=== PATIENT | male | born 1945 | race Caucasian/White ===

== ENCOUNTER → 2017-12-30 | Outpatient (CLI) | payer MEDICARE ==
[2015-06-28 11:29] VITALS: BP 129/79
[~2017-12-30] MED LIST: ACET325T16 PO; APIX5TAB PO; ASPI-612 PO; DILT240C32 PO; FLUT1DIS3 IH; LEVO500T59 PO; LOSA100T7 PO; TAMS0.4C97 PO; TIOT18CA IH; XOPENEX HFA15 GM IH
--- NOTE | 2017-12-30 10:50 | CARD ---
MR#: [id number] Date of Study: 12/30/2017 Ordering Physician: MICHEAL REED, Referring Physician: MICHEAL REED, Tech: Jessica Villalobos [facility] APPROVED REPORT EXAM: Two-dimensional and M-mode echocardiogram with Doppler and color Doppler. Other Information Quality : Technically LimitedHR: 70bpm Rhythm : NSRTechnically limited study due to lung disease. INDICATION Atrial Fibrillation LEFT VENTRICLE The left ventricle is normal size. There is borderline concentric left ventricular hypertrophy. The l eft ventricular systolic function is normal and the ejection fraction is within normal range. The Eje ction Fraction is 55-60%. There is normal LV segmental wall motion. Transmitral Doppler flow pattern is Grade II-pseudonormal filling dynamics. RIGHT VENTRICLE The right ventricle is mildly dilated. There is normal right ventricular wall thickness. The right ve ntricular systolic function is normal. ATRIA The left atrium size is normal. The right atrium size is normal. The interatrial septum is intact wit h no evidence for an atrial septal defect or patent foramen ovale as noted on 2-D or Doppler imaging. AORTIC VALVE The aortic valve is trileaflet. The aortic valve is normal in structure and function. Doppler and Col or Flow revealed no significant aortic regurgitation. There is no significant aortic valvular stenosi s. MITRAL VALVE The mitral valve is normal in structure and function. There is no evidence of mitral valve prolapse. There is no mitral valve stenosis. Doppler and Color Flow revealed no mitral valve regurgitation note d. TRICUSPID VALVE The tricuspid valve is normal in structure and function. Doppler and Color Flow revealed trace tricus pid regurgitation. There is no tricuspid valve prolapse or vegetation. There is no tricuspid valve st enosis. PULMONIC VALVE Pulmonic valve not well visualized. GREAT VESSELS The aortic root is normal in size. The IVC is normal in size and collapses >50% with inspiration. PERICARDIAL EFFUSION There is no evidence of significant pericardial effusion. Critical Notification Critical Value: No <Conclusion> The left ventricular systolic function is normal and the ejection fraction is within normal range. Th e Ejection Fraction is 55-60%. There is normal LV segmental wall motion. The right ventricle is mildly dilated. Signed by : Micheal Reed, Electronically Approved : 12/30/2017 10:49:50
== END | disposition home or self-care (01) ==
LOC: ECHO 07:53
PROVIDERS: ATTEND Internal Medicine Cardiovascular Disease
DX: I48.0 Paroxysmal atrial fibrillation (principal)
CPT/HCPCS: 93306

== ENCOUNTER → 2020-01-25 | Outpatient (CLI) | payer MEDICARE ==
[2015-06-28 11:29] VITALS: BP 129/79
[~2020-01-25] MED LIST changes: +ACET-2061 PO; -ACET325T16 PO; -ASPI-612 PO; +ASPI-886 PO; +LOSA100T14 PO; -LOSA100T7 PO
--- NOTE | 2020-01-25 12:06 | CARD ---
MR#: [id number] Date of Study: 01/25/2020 Ordering Physician: MICHEAL MITTAL, Referring Physician: MICHEAL MITTAL, Tech: Ntaalie Guzman APPROVED REPORT EXAM: Two-dimensional and M-mode echocardiogram with Doppler and color Doppler. Other Information Quality : FairHR: 71bpm Technically limited study due to COPD INDICATION COPD Atrial Fibrillation RISK FACTORS Hypertension 2D DIMENSIONS RVDd3.5 (2.9-3.5cm)Left Atrium(2D)2.5 (1.6-4.0cm) IVSd1.0 (0.7-1.1cm)Aortic Root(2D)3.4 (2.0-3.7cm) LVDd4.3 (3.9-5.9cm)LVOT Diameter2.0 (1.8-2.4cm) PWd1.0 (0.7-1.1cm)LVDs2.7 (2.5-4.0cm) FS (%) 38.2 %SV56.9 ml LVEF(%)68.8 (>50%) Aortic Valve AoV Peak Sam.148.7cm/sAoV VTI27.1cm AO Peak GR.8.8mmHgLVOT Peak Sam.92.6cm/s LVOT VTI 22.68cmAO Mean GR.4mmHg TERRI (VMAX)1.76og0JST (VTI)2.73cm2 Mitral Valve MV E Lbtqjmja56.1cm/sMV DECEL MQJN055ii MV A Injpfwoh92.1cm/sMV E Mean Gr.1mmHg MV BGJ11ylB/A Ratio0.7 MVA (PHT)2.90cm2 TDI E/Lateral E'9.0E/Medial E'8.6 Pulmonary Valve PV Peak Ptugsdsp54.7cm/sPV Peak Grad.3mmHg Tricuspid Valve TR P. Osycqmbg400ru/sRAP POVRWGTP2wpSn TR Peak Gr.69agFvJXOP34hvLh Pulmonary Vein S1 Daburisy25.4cm/sD2 Tjejxtwa91.1cm/s PVa vpeetsyy888xjho LEFT VENTRICLE The left ventricle is normal size. There is normal left ventricular wall thickness. The left ventricu lar systolic function is normal and the ejection fraction is within normal range. The Ejection Fracti on is 55-60%. There is grossly normal LV segmental wall motion. Technically limited images Transmitra l Doppler flow pattern is Grade I-abnormal relaxation pattern. RIGHT VENTRICLE The right ventricle is normal size. There is normal right ventricular wall thickness. The right ventr icular systolic function is normal. ATRIA The left atrium size is normal. The right atrium size is normal. The interatrial septum is intact wit h no evidence for an atrial septal defect or patent foramen ovale as noted on 2-D or Doppler imaging. AORTIC VALVE The aortic valve is not well visualized. Doppler and Color Flow revealed no significant aortic regurg itation. There is no significant aortic valvular stenosis. Calculated aortic valve area is 2.47 cm2 w ith maximum pressure gradient of 10 mmHg and mean pressure gradient of 5 mmHg. MITRAL VALVE The mitral valve is normal in structure and function. There is no evidence of mitral valve prolapse. There is no mitral valve stenosis. Doppler and Color-flow revealed trace mitral regurgitation. TRICUSPID VALVE The tricuspid valve is not well visualized. Doppler and Color Flow revealed trace tricuspid regurgita tion with an estimated PAP of 37 mmHg. There is no tricuspid valve stenosis. PULMONIC VALVE The pulmonic valve is not well visualized. Doppler and Color Flow revealed no pulmonic valvular regur gitation. GREAT VESSELS The aortic root is normal in size. The ascending aorta is normal in size. The IVC is normal in size a nd collapses >50% with inspiration. PERICARDIAL EFFUSION There is no evidence of significant pericardial effusion. Critical Notification Critical Value: No <Conclusion> The left ventricular systolic function is normal and the ejection fraction is within normal range. Th e Ejection Fraction is 55-60%. There is grossly normal LV segmental wall motion. Technically limited images Doppler and Color Flow revealed trace tricuspid regurgitation with an estimated PAP of 37 mmHg. Signed by : Micheal Mittal, Electronically Approved : 01/25/2020 12:06:00
== END ==
LOC: ECHO 08:49
PROVIDERS: ATTEND Internal Medicine Cardiovascular Disease
DX: I48.0 Paroxysmal atrial fibrillation (principal)
CPT/HCPCS: 93306

== ENCOUNTER → 2020-11-27 | Outpatient (CLI) | payer MEDICARE ==
[2015-06-28 11:29] VITALS: BP 129/79
--- NOTE | 2020-11-27 11:41 | KCIC ---
EXAM: Bilateral feet, 3 views. HISTORY: Pain. COMPARISON: None. FINDINGS: 3 views of both feet are obtained. There is right first metatarsal phalangeal joint space n arrowing with degenerative subchondral sclerosis, subchondral cyst formation and marginal spurring. T here is a suspected healed fracture of the right fifth proximal phalanx. There are small bilateral pl tanner spurs. IMPRESSION: 1. 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 2. Small bilateral plantar spurs. Electronically signed by: Aaliyah Flores MD (11/27/2020 11:38 AM) [id number]
--- NOTE | 2020-11-27 12:41 | KCIC ---
EXAM: XR HAND 3 VIEWS 11/27/2020 10:40 AM CLINICAL INDICATION: Pain in multiple joints COMPARISON: None TECHNIQUE: PA, oblique, and lateral views of the right and left hand FINDINGS: Left hand: The bones are diffusely demineralized. There is no acute fracture. There is severe joint s pace narrowing at the first CMC joint with small osteophytes. Moderate to severe joint space narrowin g with small osteophytes and mild degenerative subluxation of the second DIP joint, and mild at the t hird DIP joint. Moderate joint space narrowing of the first and second MCP joints. There are no erosi ons. Soft tissue is normal. Right hand: The bones are diffusely demineralized. There is no acute fracture. There are small osteop hytes at the first CMC joint. Moderate to severe joint space narrowing with small osteophytes and sub chondral cysts at the first interphalangeal joint and second and third DIP joints. Moderate joint spa ce narrowing of the thumb MCP joint. There is severe joint space narrowing and small subchondral cyst s at the second and third MCP joints with volar subluxation. There is radiocarpal joint space narrowi ng with small osteophytes. No definite erosions. Soft tissue is normal. IMPRESSION: 1. Multifocal osteoarthrosis, greatest in the second and third MCP and DIP joints, and first CMC join ts bilaterally. 2. Osteopenia. Electronically signed by: Tanika Jimenez MD (11/27/2020 12:39 PM) [id number]
== END ==
LOC: KCIC 10:32
PROVIDERS: ATTEND Internal Medicine Rheumatology
DX: M19.071 Primary osteoarthritis, right ankle and foot (principal); M19.042 Primary osteoarthritis, left hand; M19.041 Primary osteoarthritis, right hand; M85.849 Other specified disorders of bone density and structure, unspecified hand
CPT/HCPCS: 73130-50; 73630-50

== ENCOUNTER 2021-01-07 12:49 | Inpatient (IN) | payer MEDICARE ==
[~2021-01-07] VITALS: Ht 170.2 cm; Wt 70.5 kg
[2021-01-07] MEDS ORDERED: IV NORMAL SALINE 1000ML BAG 1,000 ML IV SCH (13:30)
[2021-01-07 13:56] LABS: BASO % 0 % (0-3); EOS % 0 % (0-3); HEMATOCRIT 37.8 % (39.0-53.0); LYMPH # 0.4 x10^3/uL (1.0-4.8); LYMPH % 3 % (24-48); MEAN CORPUSCULAR HEMOGLOBIN 30 pg (25-35); MEAN CORPUSCULAR HGB CONC 34 g/dL (31-37); MEAN CORPUSCULAR VOLUME 87 fL (79-100); MONO # 1.3 x10^3/uL (0.0-1.1); MONO % 11 % (0-9); NEUT # 9.9 x10^3/uL (1.8-7.7); NEUT % 85 % (31-73); PLATELET COUNT 261 x10^3/uL (140-400); RED BLOOD COUNT 4.35 x10^6/uL (4.30-5.70); RED CELL DISTRIBUTION WIDTH 14.8 % (11.5-14.5); WHITE BLOOD COUNT 11.7 x10^3/uL (4.0-11.0)
[2021-01-07] MEDS ORDERED: DEXAMETHASONE SOD PHOS 4 MG/ML VIAL IVP ONE (14:00)
[2021-01-07] MEDS ORDERED: IV NORMAL SALINE 1000ML BAG 1,000 ML IV ONE (14:00)
[2021-01-07] MEDS ORDERED: IPRATRPIUM/ALBUTEROL 0.5/2.5MG 3 ML NEBU. NEB ONE (14:00)
[2021-01-07 14:06] LABS: CALCIUM 8.2 mg/dL (8.5-10.1); CREATININE 0.9 mg/dL (0.7-1.3); GFR 82.3; POTASSIUM 3.1 mmol/L (3.5-5.1)
[2021-01-07 14:12] LABS: ALBUMIN 2.7 g/dL (3.4-5.0); ALBUMIN/GLOBULIN RATIO 0.6 (1.0-1.7); TOTAL BILIRUBIN 0.6 mg/dL (0.2-1.0)
--- NOTE | 2021-01-07 14:24 | EKG ---
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
--- NOTE | 2021-01-07 14:25 | RAD ---
EXAM: Chest, single view. HISTORY: Shortness of breath. COMPARISON: 01/25/2016 FINDINGS: A frontal view of the chest is obtained. There is partially consolidated left lower lobe in filtrate with small pleural effusion. The superimposed on diffuse interstitial infiltrate and suspect ed emphysema. There is a small nodular opacity overlying the left upper lobe which may be due to afor ementioned infiltrate. The heart is normal in size. There is no pneumothorax. IMPRESSION: 1. Partial consolidated left lower lobe pneumonia with small pleural effusion. 2. Diffuse interstitial infiltrate superimposed on emphysema. 3. Small nodular opacity overlying the left upper lobe possibly due to aforementioned infiltrate. Brigida rt-term radiographic or CT follow-up to exclude a pulmonary nodule in this location is recommended. Electronically signed by: Aaliyah Flores MD (01/07/2021 2:23 PM) [id number]
[2021-01-07 14:27] LABS: PROTHROMBIN TIME PATIENT 16.5 SEC (11.7-14.0)
--- NOTE | 2021-01-07 14:33 | PHYS DOC ---
Past Medical History Past Medical History: COPD Additional Past Medical Histor: BPH Past Surgical History: No Surgical History, Appendectomy, Cholecystectomy Smoking Status: Never Smoker Alcohol Use: None Drug Use: None General Adult EDM: Chief Complaint: SHORTNESS OF BREATH HPI: HPI: Patient is a 75 year old male who presents with productive cough and increased and shortness of breath over the last week. Initial symptoms started 2 weeks ago.Patient reports his O2 saturation at home was 84% which is what prompted him to go to urgent care. Patient is not on home oxygen. Patient was seen in urgent care prior to arrival and given one breathing treatment. Patient also had a rapid Covid test done at urgent care which was negative. Patient denies pain, fever, nausea/vomiting/diarrhea. Patient has a history of COPD, A. fib, BPH. Review of Systems: Review of Systems: ROS At least 10 ROS systems have been reviewed and are negative except as documented in the HPI. General: Negative except as outlined in HPI above. Skin: Negative except as outlined in HPI above. HEENT: Negative except as outlined in HPI above. Neck: Negative except as outlined in HPI above. Respiratory: Negative except as outlined in HPI above.. Cardiovascular: Negative except as outlined in HPI above. Abdomen: Negative except as outlined in HPI above. : Negative except as outlined in HPI above. Back/MSK: Negative except as outlined in HPI above. Neuro: Negative except as outlined in HPI above. Psych: Negative except as outlined in HPI above. Heart Score: C/O Chest Pain: No Risk Factors: Risk Factors: DM, Current or recent (<one month) smoker, HTN, HLP, family history of CAD, obesity. Risk Scores: Score 0 - 3: 2.5% MACE over next 6 weeks - Discharge Home Score 4 - 6: 20.3% MACE over next 6 weeks - Admit for Clinical Observation Score 7 - 10: 72.7% MACE over next 6 weeks - Early Invasive Strategies Current Medications: Current Medications Medications (Trade) Dose Ordered Sig/Pari Start Time Stop Time Status Last Admin Dose Admin Albuterol/ Ipratropium (Duoneb) 3 ml 1X ONCE 01/07/21 14:00 01/07/21 14:01 DC 01/07/21 14:20 3 ML Dexamethasone Sodium Phosphate (Decadron) 10 mg 1X ONCE 01/07/21 14:00 01/07/21 14:01 DC 01/07/21 14:24 10 MG Sodium Chloride 1,000 ml @ 0 mls/hr 1X ONCE 01/07/21 14:00 01/07/21 14:01 DC Allergies: Allergies: Allergies Coded Allergies Type Severity Reaction Last Updated Verified No Known Drug Allergies 06/07/13 No Physical Exam: PE: Constitutional: Well developed, well nourished, no acute distress, non-toxic appearance. [] HENT: Normocephalic, atraumatic, bilateral external ears normal, oropharynx moist, no oral exudates, nose normal. [] Eyes: PERRLA, EOMI, conjunctiva normal, no discharge. [] Neck: Normal range of motion, no tenderness, supple, no stridor. [] Cardiovascular:Heart rate tachycardic Lungs & Thorax: Bilateral breath sounds clear to auscultation [] Abdomen: Bowel sounds normal, soft, no tenderness, no masses, no pulsatile masses. [] Skin: Warm, dry, no erythema, no rash. [] Back: No tenderness, no CVA tenderness. [] Extremities: No tenderness, no cyanosis, no clubbing, ROM intact, no edema. [] Neurologic: Alert and oriented X 3, normal motor function, normal sensory functi on, no focal deficits noted. [] Psychologic: Affect normal, judgement normal, mood normal. [] Current Patient Data: Labs: Laboratory Tests Test 01/07/21 13:25 White Blood Count 11.7 x10^3/uL (4.0-11.0) H Red Blood Count 4.35 x10^6/uL (4.30-5.70) Hemoglobin 13.0 g/dL (13.0-17.5) Hematocrit 37.8 % (39.0-53.0) L Mean Corpuscular Volume 87 fL (79-100) Mean Corpuscular Hemoglobin 30 pg (25-35) Mean Corpuscular Hemoglobin Concent 34 g/dL (31-37) Red Cell Distribution Width 14.8 % (11.5-14.5) H Platelet Count 261 x10^3/uL (140-400) Neutrophils (%) (Auto) 85 % (31-73) H Lymphocytes (%) (Auto) 3 % (24-48) L Monocytes (%) (Auto) 11 % (0-9) H Eosinophils (%) (Auto) 0 % (0-3) Basophils (%) (Auto) 0 % (0-3) Neutrophils # (Auto) 9.9 x10^3/uL (1.8-7.7) H Lymphocytes # (Auto) 0.4 x10^3/uL (1.0-4.8) L Monocytes # (Auto) 1.3 x10^3/uL (0.0-1.1) H Eosinophils # (Auto) 0.0 x10^3/uL (0.0-0.7) Basophils # (Auto) 0.0 x10^3/uL (0.0-0.2) Platelet Estimate Pending Sodium Level 136 mmol/L (136-145) Potassium Level 3.1 mmol/L (3.5-5.1) L Chloride Level 95 mmol/L (98-107) L Carbon Dioxide Level 33 mmol/L (21-32) H Anion Gap 8 (6-14) Blood Urea Nitrogen 8 mg/dL (8-26) Creatinine 0.9 mg/dL (0.7-1.3) Estimated GFR (Cockcroft-Gault) 82.3 BUN/Creatinine Ratio 9 (6-20) Glucose Level 129 mg/dL (70-99) H Lactic Acid Level 1.2 mmol/L (0.4-2.0) Calcium Level 8.2 mg/dL (8.5-10.1) L Total Bilirubin 0.6 mg/dL (0.2-1.0) Aspartate Amino Transferase (AST) 19 U/L (15-37) Alanine Aminotransferase (ALT) 26 U/L (16-63) Alkaline Phosphatase 71 U/L (46-116) Creatine Kinase 77 U/L (39-308) Creatine Kinase MB (Mass) 0.5 ng/mL (0.0-3.6) Creatine Kinase MB Relative Index 0.6 % (0-4) Troponin I High Sensitivity 12 ng/L (4-75) BB-Rnw-H-Type Natriuretic Peptide 410 pg/mL (0-449) Total Protein 7.0 g/dL (6.4-8.2) Albumin 2.7 g/dL (3.4-5.0) L Albumin/Globulin Ratio 0.6 (1.0-1.7) L Laboratory Tests 01/07/21 13:25 Laboratory Tests 01/07/21 13:25 Vital Signs: Vital Signs Date Time Temp Pulse Resp B/P (MAP) Pulse Ox O2 Delivery O2 Flow Rate FiO2 01/07/21 14:20 94 Nasal Cannula 3.0 01/07/21 13:04 98.2 114 36 141/108 (119) 98.2 EKG: EKG: [] Radiology/Procedures: Radiology/Procedures: []EXAM: Chest, single view. HISTORY: Shortness of breath. COMPARISON: 01/25/2016 FINDINGS: A frontal view of the chest is obtained. There is partially consolidated left lower lobe infiltrate with small pleural effusion. The superimposed on diffuse interstitial infiltrate and suspected emphysema. There is a small nodular opacity overlying the left upper lobe which may be due to af orementioned infiltrate. The heart is normal in size. There is no pneumothorax. IMPRESSION: 1. Partial consolidated left lower lobe pneumonia with small pleural effusion. 2. Diffuse interstitial infiltrate superimposed on emphysema. 3. Small nodular opacity overlying the left upper lobe possibly due to aforementioned infiltrate. Short-term radiographic or CT follow-up to exclude a pulmonary nodule in this location is recommended. Electronically signed by: Aaliyah Flores MD (01/07/2021 2:23 PM) [id number] CT angiography chest with contrast PQRS statement: CT scans at this facility use dose reduction including either automated exposure control, iterative reconstructions, and /or weight based radiation dosing via mA and kV modification when appropriate to reduce radiation dose to as low as reasonably achievable. Contrast: 90 mL Omnipaque 350 intravenous contrast. 3-D MIP reconstructions of the arteries were acquired. HISTORY: Shortness of breath. COMPARISON: CT chest November 13, 2015. FINDINGS: Mild ectasia ascending thoracic aorta diameter 3.[address] aque aortic root. Coronary calcified plaque. Heart size normal. Esophagus unremarkable. No pulmonary emboli. There is mild mediastinal and hilar adenopathy largest lymph nodes at the hilum measuring 1.2 cm. This adenopathy is new from prior imaging. Miniscule subcentimeter volume of pleural fluid along the medial lung bases. Trachea and bronchi are unremarkable. Extensive centrilobular nodules and nodular opacities bilaterally and there is basilar left lower lobe consolidated opacity along the diaphragm. This is new from prior imaging. Bones are unremarkable. IMPRESSION: 1. No pulmonary artery emboli. 2. Extensive bilateral centrilobular nodules as well as nodular opacities, as well as consolidation at the basilar left lower lobe along the diaphragm. This is typical of an endobronchial infectious/inflammatory process. This may be multilobar endobronchial pneumonia. Given the presence of mild mediastinal and hilar adenopathy, sarcoidosis would also be a consideration. This would be an atypical presentation of metastatic disease. Follow-up CT imaging in 3 months is advised to document this improves over time. If this does not improve over time or if imaging features on clinical features worsen further assessment with PET scan imaging may be of benefit. Electronically signed by: Hunter Monzon MD (01/07/2021 3:53 PM) [facility] Course & Med Decision Making: Course & Med Decision Making Pertinent Labs and Imaging studies reviewed. (See chart for details) [] 75-year-old male presents with shortness of breath and productive cough for 2 weeks. Symptoms have increased over the last week.Chest x-ray showed partial consolidated left lower lobe pneumonia with small pleural effusion.Small nodular opacity overlying the left upper lobe possibly due to aforementioned infiltrate. D-dimer was elevated at 1.05. CTA of chest was ordered to rule out PE. CTA showed scarring, which is most likely from sarcoidosis. No indication metastatic disease, PEs. Patient was tachypneic and hypoxic on arrival. Patient was 87-88% on room air. Placed on 4 L and nasal cannula, patient 92 to 94%. ABGs ordered. Patient currently takes Eliquis and a daily aspirin due to history of A. fib. PT, 16.5, INR 1.3. Potassium was 3.1. Patient given 40 mEq of potassium. All other labs are unremarkable. Discussed all results with patient. Advised patient he would be admitted to the hospital for further evaluation. Spoke with Dr. Rangel who will accept patient with pneumonia, hypoxia, PUI. Carlin Disclaimer: Carlin Disclaimer: This electronic medical record was generated, in whole or in part, using a voice recognition dictation system. Departure Departure Impression: Primary Impression: Pneumonia Qualified Codes: J18.9 - Pneumonia, unspecified organism Additional Impressions: Hypoxia Person under investigation for COVID-19 Disposition: ADMITTED INPATIENT Admitting Physician: FELISA Condition: STABLE Referrals: STACIA TOLBERT MD (PCP) WILNER SCHROEDER [employer] Jan 07, 2021 14:33
[2021-01-07 14:36] LABS: D-DIMER 1.05 ug/mlFEU (0.00-0.50)
[2021-01-07 14:37] LABS: BASE EXCESS ABG 7 mmol/L (-3-3); HCO3 ABG 30 mmol/L (21-28); PCO2 ABG 39 mmHg (35-46); PO2 ABG 67 mmHg (65-108); SAT O2 ABG 94 % (92-99)
[2021-01-07 14:38] LABS: FIO2 ABG 32
[2021-01-07 14:49] LABS: % BANDS 8 % (0-9); % LYMPHS 2 % (24-48); % MONOS 11 % (0-10); % PROS 2 % (0-0); % SEGS 77 % (35-66)
[2021-01-07 14:51] LABS: PLT ESTIMATE ADEQUATE (ADEQUATE)
[2021-01-07] MEDS ORDERED: IOHEXOL 350 MG/ML 100 ML VIAL. IV ONE (15:15)
[2021-01-07] MEDS ORDERED: CONTRAST GIVEN. MC PRN (15:15)
[2021-01-07] MEDS ORDERED: cefTRIAXone IV Push 1 GM VIAL. IVP ONE (15:45)
[2021-01-07] MEDS ORDERED: AZITHRMYCN 500MG IVPB FOR OMNI 250 ML IV ONE (15:45)
--- NOTE | 2021-01-07 15:55 | RAD ---
CT angiography chest with contrast PQRS statement: CT scans at this facility use dose reduction including either automated exposure cont rol, iterative reconstructions, and /or weight based radiation dosing via mA and kV modification when appropriate to reduce radiation dose to as low as reasonably achievable. Contrast: 90 mL Omnipaque 350 intravenous contrast. 3-D MIP reconstructions of the arteries were acqu ired. HISTORY: Shortness of breath. COMPARISON: CT chest November 13, 2015. FINDINGS: Mild ectasia ascending thoracic aorta diameter 3.7 cm. Calcified plaque aortic root. Gray ry calcified plaque. Heart size normal. Esophagus unremarkable. No pulmonary emboli. There is mild me diastinal and hilar adenopathy largest lymph nodes at the hilum measuring 1.2 cm. This adenopathy is new from prior imaging. Miniscule subcentimeter volume of pleural fluid along the medial lung bases. Trachea and bronchi are unremarkable. Extensive centrilobular nodules and nodular opacities bilateral ly and there is basilar left lower lobe consolidated opacity along the diaphragm. This is new from pr ior imaging. Bones are unremarkable. IMPRESSION: 1. No pulmonary artery emboli. 2. Extensive bilateral centrilobular nodules as well as nodular opacities, as well as consolidation a t the basilar left lower lobe along the diaphragm. This is typical of an endobronchial infectious/inf lammatory process. This may be multilobar endobronchial pneumonia. Given the presence of mild mediast inal and hilar adenopathy, sarcoidosis would also be a consideration. This would be an atypical prese ntation of metastatic disease. Follow-up CT imaging in 3 months is advised to document this improves over time. If this does not improve over time or if imaging features on clinical features worsen furt her assessment with PET scan imaging may be of benefit. Electronically signed by: Hunter Monzon MD (01/07/2021 3:53 PM) [facility]
[2021-01-07] MEDS ORDERED: oxyCODONE IR 5 MG TABLET PO PRN (16:45)
[2021-01-07] MEDS ORDERED: ELECTROLYTE (NON-ICU) PROTOCOL. MC PRN (16:45)
[2021-01-07] MEDS ORDERED: oxyCODONE/APAP 5/325 1 TAB TABLET PO PRN ×2 (16:45)
[2021-01-07] MEDS ORDERED: CALCIUM CARBONATE 500 MG TAB.CHEW PO PRN (16:45)
[2021-01-07] MEDS ORDERED: ZOLPIDEM 5 MG TABLET. PO PRN (16:45)
[2021-01-07] MEDS ORDERED: ACETAMINOPHEN 325 MG TABLET. PO PRN (16:45)
[2021-01-07] MEDS ORDERED: ONDANSETRON PF 4 MG/2 ML VIAL. IVP PRN (16:45)
[2021-01-07] MEDS ORDERED: NON FORMULARY ITEM (Levalbuterol Tartrate (Xopenex Hfa) 2 PUFF) IH SCH (17:00)
[2021-01-07] MEDS ORDERED: POTASSIUM CHLORIDE 20 MEQ TABLET.ER. PO ONE (17:00)
--- NOTE | 2021-01-07 17:04 | PDOC1 ---
History and Physical Date of Service: DOS: DATE: 01/07/21 TIME: 16:52 Chief Complaint: Problems: (1) Acute and chronic respiratory failure with hypoxia Chief Complain: SOB History of Present Illness: HPI: This patient is 75-year-old male presented the emergency room today due to cough productive of yellow mucus and worsening shortness of breath for about 1 week. He says his symptoms have been progressing for about 2 weeks now. He went to urgent care this morning was given a breathing treatment and had a rapid Covid done which was negative. The reason he went to urgent care this morning is that his O2 sat was in the mid to low 80s. Patient describes an interesting history of pulmonary problems. He has never been a smoker. However [place] spent a lot of time around farm animals and grain dust. He then went on to work in the [employer] for over 30 years and was around a lot of secondhand smoke. Says he was initially seen by a environmental education specialist in the early who said he did not have COPD but he was going to treat him as if he did? He has been on numerous inhalers. Currently on Trelegy at home. He has been treated for pneumonia a few times since then. Denies ever having any sort of lung biopsy. Imaging today in the emergency room showing left lower lobe consolidation consistent with a pneumonia. He also does have some centrilobular adenopathy. When I evaluated the patient he was resting in bed. On 3 L nasal cannula. Agreeable to admission. Reports that he received both Covid vaccines Past Medical/Surgical History: PMH/PSH: Some sort of lung disorder patient is not sure about, atrial fibrillation Allergies: Allergies: Coded Allergies: No Known Drug Allergies (Unverified , 06/07/13) Family History: Family History: Reviewed with patient denies knowing any family history Social History: Social History: Denies alcohol tobacco drug use Current Medications: Current Medications Current Medications Sodium Chloride 1,000 ml @ 1,000 mls/hr Q1H IV Last administered on 01/07/21at 14:20; Start 01/07/21 at 13:30; Stop 01/07/21 at 14:29; Status DC Dexamethasone Sodium Phosphate (Decadron) 10 mg 1X ONCE IVP Last administered on 01/07/21at 14:24; Start 01/07/21 at 14:00; Stop 01/07/21 at 14:01; Status DC Albuterol/ Ipratropium (Duoneb) 3 ml 1X ONCE NEB Last administered on 01/07/21at 14:20; Start 01/07/21 at 14:00; Stop 01/07/21 at 14:01; Status DC Sodium Chloride 1,000 ml @ 0 mls/hr 1X ONCE IV ; Start 01/07/21 at 14:00; Stop 01/07/21 at 14:01; Status DC Iohexol (Omnipaque 350 Mg/ml) 90 ml 1X ONCE IV Last administered on 01/07/21at 15:35; Start 01/07/21 at 15:15; Stop 01/07/21 at 15:16; Status DC Info (CONTRAST GIVEN -- Rx MONITORING) 1 each PRN DAILY PRN MC SEE COMMENTS; Start 01/07/21 at 15:15; Stop 01/09/21 at 15:14 Ceftriaxone Sodium (Rocephin) 1 gm 1X ONCE IVP ; Start 01/07/21 at 15:45; Stop 01/07/21 at 15:46; Status DC Azithromycin 250 ml @ 250 mls/hr 1X ONCE IV ; Start 01/07/21 at 15:45; Stop 01/07/21 at 16:44; Status DC Ondansetron HCl (Zofran) 4 mg PRN Q6HRS PRN IVP NAUSEA/VOMITING; Start 01/07/21 at 16:45; Status UNV Calcium Carbonate/ Glycine (Tums) 500 mg PRN Q3HRS PRN PO UPSET STOMACH; Start 01/07/21 at 16:45; Status UNV Zolpidem Tartrate (Ambien) 5 mg PRN QHS PRN PO INSOMNIA, MAY REPEAT IN 1HR; Start 01/07/21 at 16:45; Status UNV Info (Non-Icu Electrolyte Protocol) 1 ea PRN DAILY PRN MC SEE COMMENTS; Start 01/07/21 at 16:45; Status UNV Oxycodone HCl (Roxicodone) 5 mg PRN Q3HRS PRN PO BREAKTHROUGH PAIN; Start 01/07/21 at 16:45; Status UNV Oxycodone/ Acetaminophen (Percocet 5/325) 1 tab PRN Q4HRS PRN PO MILD PAIN, 1ST CHOICE; Start 01/07/21 at 16:45; Status UNV Oxycodone/ Acetaminophen (Percocet 5/325) 2 tab PRN Q4HRS PRN PO MODERATE PAIN, SEVERE PAIN; Start 01/07/21 at 16:45; Status UNV Acetaminophen (Tylenol) 650 mg PRN Q6HRS PRN PO Headaches, Temp > 101.5F; Start 01/07/21 at 16:45; Status UNV Senna/Docusate Sodium (Senna Plus) 1 tab BID PO ; Start 01/07/21 at 21:00; Status UNV Apixaban (Eliquis) 5 mg BID PO ; Start 01/07/21 at 21:00; Status UNV Aspirin (Ecotrin) 81 mg DAILYWBKFT PO ; Start 01/08/21 at 08:00; Status UNV Diltiazem HCl (Cardizem 24hr Cd) 240 mg DAILY PO ; Start 01/08/21 at 09:00; Status UNV Tamsulosin HCl (Flomax) 0.4 mg HS PO ; Start 01/07/21 at 21:00; Status UNV Non-Formulary Medication (Fluticasone/ Salmeterol (Advair 250-50 Diskus)) 1 each BID IH ; Start 01/07/21 at 21:00; Status UNV Non-Formulary Medication (Levalbuterol Tartrate (Xopenex Hfa)) 2 puff PRN Q4- 6HRS IH ; Start 01/07/21 at 17:00; Status UNV Non-Formulary Medication (Tiotropium [place] (Spiriva)) 18 mcg DAILY IH ; Start 01/08/21 at 09:00; Status UNV Active Scripts Active Xopenex Hfa (Levalbuterol Tartrate) 15 Gm Hfa.aer.ad 2 Puff IH PRN Q4-6HRS Aspirin Ec (Aspirin) 81 Mg Tablet.dr 81 Mg PO DAILYWBKFT Mapap (Acetaminophen) 325 Mg Tablet 650 Mg PO PRN Q4HRS PRN Eliquis (Apixaban) 5 Mg Tablet 5 Mg PO BID Diltiazem 24HR Cd (Diltiazem Hcl) 240 Mg Cap.er.24h 240 Mg PO DAILY Levaquin (Levofloxacin) 500 Mg Tablet 500 Mg PO DAILY06 Reported Advair 250-50 Diskus (Fluticasone/Salmeterol) 1 Each Disk.w.dev 1 Each IH BID Spiriva (Tiotropium [place]) 18 Mcg Cap.w.dev 18 Mcg IH DAILY Flomax (Tamsulosin Hcl) 0.4 Mg Cap.er.24h 0.4 Mg PO HS ROS: Review of Systems Review of System Unless noted in HPI 14 point review of systems was negative Physical Exam: Vital Signs: Vital Signs Date Time Temp Pulse Resp B/P (MAP) Pulse Ox O2 Delivery O2 Flow Rate FiO2 01/07/21 14:20 94 Nasal Cannula 3.0 01/07/21 13:04 98.2 114 36 141/108 (119) 98.2 Physcial Exam: GEN: No apparent distress. Alert and oriented HEENT: Normal cephalic, atraumatic, external auditory canals are patent EYES: Extraocular muscles are intact, pupil are equally round and reactive to light and accommodation MUSCULOSKELETAL: Well developed , well nourished, good range of motion ENDOCRINE: No thyromegaly was palpated LYMPHATICS: No cervical chain or axillary nodes were noted HEMATOPOIETIC: No bruising NECK: Supple, no JVD, no thyromegaly was noted LUNGS: Clear to auscultation in all lung schumacher without rhonchi or wheezing HEART: Irregularly irregular. Peripheral pulses intact, no obvious murmurs noted ABDOMEN: Soft, nontender. Positive bowel sounds, no organomegaly, normal bowel sounds EXTREMITIES: Without clubbing, cyanosis, or edema. Pedal pulses intact. NEUROLOGIC: Normal speech and tone. A&O x 3, moves all extremities, no obvious focal deficits PSYCHIATRIC: Normal affect, normal mood. Stable SKIN: No ulcerations or rashes, good skin turgor, no jaundice VASCULAR: Good capillary refill, neurovascular bundle appears to be intact Labs: Labs: Laboratory Tests Test 01/07/21 13:25 01/07/21 14:10 01/07/21 15:25 White Blood Count 11.7 x10^3/uL (4.0-11.0) Red Blood Count 4.35 x10^6/uL (4.30-5.70) Hemoglobin 13.0 g/dL (13.0-17.5) Hematocrit 37.8 % (39.0-53.0) Mean Corpuscular Volume 87 fL (79-100) Mean Corpuscular Hemoglobin 30 pg (25-35) Mean Corpuscular Hemoglobin Concent 34 g/dL (31-37) Red Cell Distribution Width 14.8 % (11.5-14.5) Platelet Count 261 x10^3/uL (140-400) Neutrophils (%) (Auto) 85 % (31-73) Lymphocytes (%) (Auto) 3 % (24-48) Monocytes (%) (Auto) 11 % (0-9) Eosinophils (%) (Auto) 0 % (0-3) Basophils (%) (Auto) 0 % (0-3) Neutrophils # (Auto) 9.9 x10^3/uL (1.8-7.7) Lymphocytes # (Auto) 0.4 x10^3/uL (1.0-4.8) Monocytes # (Auto) 1.3 x10^3/uL (0.0-1.1) Eosinophils # (Auto) 0.0 x10^3/uL (0.0-0.7) Basophils # (Auto) 0.0 x10^3/uL (0.0-0.2) Segmented Neutrophils % 77 % (35-66) Band Neutrophils % 8 % (0-9) Lymphocytes % 2 % (24-48) Monocytes % 11 % (0-10) Promyelocytes % 2 % (0-0) Platelet Estimate Adequate (ADEQUATE) Prothrombin Time 16.5 SEC (11.7-14.0) Prothromb Time International Ratio 1.3 (0.8-1.1) Activated Partial Thromboplast Time 39 SEC (24-38) D-Dimer (Susan) 1.05 ug/mlFEU (0.00-0.50) Sodium Level 136 mmol/L (136-145) Potassium Level 3.1 mmol/L (3.5-5.1) Chloride Level 95 mmol/L (98-107) Carbon Dioxide Level 33 mmol/L (21-32) Anion Gap 8 (6-14) Blood Urea Nitrogen 8 mg/dL (8-26) Creatinine 0.9 mg/dL (0.7-1.3) Estimated GFR (Cockcroft-Gault) 82.3 BUN/Creatinine Ratio 9 (6-20) Glucose Level 129 mg/dL (70-99) Lactic Acid Level 1.2 mmol/L (0.4-2.0) Calcium Level 8.2 mg/dL (8.5-10.1) Magnesium Level 1.8 mg/dL (1.8-2.4) Total Bilirubin 0.6 mg/dL (0.2-1.0) Aspartate Amino Transf (AST/SGOT) 19 U/L (15-37) Alanine Aminotransferase (ALT/SGPT) 26 U/L (16-63) Alkaline Phosphatase 71 U/L (46-116) Creatine Kinase 77 U/L (39-308) Creatine Kinase MB (Mass) 0.5 ng/mL (0.0-3.6) Creatine Kinase MB Relative Index 0.6 % (0-4) Troponin I High Sensitivity 12 ng/L (4-75) BK-Dnm-M-Type Natriuretic Peptide 410 pg/mL (0-449) Total Protein 7.0 g/dL (6.4-8.2) Albumin 2.7 g/dL (3.4-5.0) Albumin/Globulin Ratio 0.6 (1.0-1.7) O2 Saturation 94 % (92-99) Arterial Blood pH 7.50 (7.35-7.45) Arterial Blood pCO2 at Patient Temp 39 mmHg (35-46) Arterial Blood pO2 at Patient Temp 67 mmHg (65-108) Arterial Blood HCO3 30 mmol/L (21-28) Arterial Blood Base Excess 7 mmol/L (-3-3) FiO2 32 SARS-CoV-2 Antigen (Rapid) Negative (NEGATIVE) Laboratory Tests Test 01/07/21 13:25 01/07/21 14:10 01/07/21 15:25 White Blood Count 11.7 x10^3/uL (4.0-11.0) Red Blood Count 4.35 x10^6/uL (4.30-5.70) Hemoglobin 13.0 g/dL (13.0-17.5) Hematocrit 37.8 % (39.0-53.0) Mean Corpuscular Volume 87 fL (79-100) Mean Corpuscular Hemoglobin 30 pg (25-35) Mean Corpuscular Hemoglobin Concent 34 g/dL (31-37) Red Cell Distribution Width 14.8 % (11.5-14.5) Platelet Count 261 x10^3/uL (140-400) Neutrophils (%) (Auto) 85 % (31-73) Lymphocytes (%) (Auto) 3 % (24-48) Monocytes (%) (Auto) 11 % (0-9) Eosinophils (%) (Auto) 0 % (0-3) Basophils (%) (Auto) 0 % (0-3) Neutrophils # (Auto) 9.9 x10^3/uL (1.8-7.7) Lymphocytes # (Auto) 0.4 x10^3/uL (1.0-4.8) Monocytes # (Auto) 1.3 x10^3/uL (0.0-1.1) Eosinophils # (Auto) 0.0 x10^3/uL (0.0-0.7) Basophils # (Auto) 0.0 x10^3/uL (0.0-0.2) Segmented Neutrophils % 77 % (35-66) Band Neutrophils % 8 % (0-9) Lymphocytes % 2 % (24-48) Monocytes % 11 % (0-10) Promyelocytes % 2 % (0-0) Platelet Estimate Adequate (ADEQUATE) Prothrombin Time 16.5 SEC (11.7-14.0) Prothromb Time International Ratio 1.3 (0.8-1.1) Activated Partial Thromboplast Time 39 SEC (24-38) D-Dimer (Susan) 1.05 ug/mlFEU (0.00-0.50) Sodium Level 136 mmol/L (136-145) Potassium Level 3.1 mmol/L (3.5-5.1) Chloride Level 95 mmol/L (98-107) Carbon Dioxide Level 33 mmol/L (21-32) Anion Gap 8 (6-14) Blood Urea Nitrogen 8 mg/dL (8-26) Creatinine 0.9 mg/dL (0.7-1.3) Estimated GFR (Cockcroft-Gault) 82.3 BUN/Creatinine Ratio 9 (6-20) Glucose Level 129 mg/dL (70-99) Lactic Acid Level 1.2 mmol/L (0.4-2.0) Calcium Level 8.2 mg/dL (8.5-10.1) Magnesium Level 1.8 mg/dL (1.8-2.4) Total Bilirubin 0.6 mg/dL (0.2-1.0) Aspartate Amino Transf (AST/SGOT) 19 U/L (15-37) Alanine Aminotransferase (ALT/SGPT) 26 U/L (16-63) Alkaline Phosphatase 71 U/L (46-116) Creatine Kinase 77 U/L (39-308) Creatine Kinase MB (Mass) 0.5 ng/mL (0.0-3.6) Creatine Kinase MB Relative Index 0.6 % (0-4) Troponin I High Sensitivity 12 ng/L (4-75) BX-Buf-D-Type Natriuretic Peptide 410 pg/mL (0-449) Total Protein 7.0 g/dL (6.4-8.2) Albumin 2.7 g/dL (3.4-5.0) Albumin/Globulin Ratio 0.6 (1.0-1.7) O2 Saturation 94 % (92-99) Arterial Blood pH 7.50 (7.35-7.45) Arterial Blood pCO2 at Patient Temp 39 mmHg (35-46) Arterial Blood pO2 at Patient Temp 67 mmHg (65-108) Arterial Blood HCO3 30 mmol/L (21-28) Arterial Blood Base Excess 7 mmol/L (-3-3) FiO2 32 SARS-CoV-2 Antigen (Rapid) Negative (NEGATIVE) Assessment/Plan Assessment/Plan Acute on chronic hypoxic respiratory failure secondary to CAP, history of unknown lung disorder, A. fib -Patient reporting worsening shortness of breath causing his presentation. He is Covid vaccinated. Has a long history of some ongoing lung disorder -Admit to hospitalist -Start patient on broad-spectrum antibiotics. -He has been Covid vaccinated. Covid PCR pending -We will start steroid -Consult to pulmonary given this history of lung disorder -Has a history of A. fib Eliquis reordered will also serve as DVT prophylaxis -Cardiac diet -Home meds resumed as indicated I spent 18 minutes discussing advance care planning with this patient. Justifications for Admission Other Justification PATRICIA REYES MD Jan 07, 2021 17:03
[2021-01-07] MEDS ORDERED: ALBUTEROL SULFATE 2.5 MG/3 ML NEBU. NEB PRN (17:45)
[2021-01-07 19:15] LABS: INFLUENZA A PATIENT NEGATIVE (NEGATIVE); INFLUENZA B PATIENT NEGATIVE (NEGATIVE)
[2021-01-07] MEDS: AMPICILLIN/SULBACTAM 3 GM in IV NORMAL SALINE 100ML 100 ML IV SCH (19:59)
[2021-01-07 20:00] VITALS: BP 105/59
[2021-01-07] MEDS: BUDESONIDE 0.5 MG/2 ML NEBU. NEB SCH (20:00)
[2021-01-07] MEDS: IPRATRPIUM/ALBUTEROL 0.5/2.5MG 3 ML NEBU. NEB SCH (20:00)
--- NOTE | 2021-01-07 20:00 | NUR ---
The patient, MAGGIE GRAFF, 75 y/o, M admitted by PATRICIA REYES MD, was given written information regarding hospital policies, unit procedures and contact persons. Valuables were checked and all questions answered. Denies needs currently. Will continue to monitor.
[2021-01-07 20:21] LABS: BILIRUBIN,URINE NEGATIVE (NEG); CLARITY,URINE CLEAR; COLOR,URINE YELLOW; NITRITE,URINE NEGATIVE (NEG); PH,URINE 7.5 (<5.0-8.0); PROTEIN,URINE NEGATIVE (NEG-TRACE)
[2021-01-07 20:29] LABS: BACTERIA,URINE 0 /HPF (0-FEW); RBC,URINE >40 /HPF (0-2)
[2021-01-07] MEDS: TAMSULOSIN 0.4 MG CAP.ER.24H. PO SCH (20:51)
[2021-01-07] MEDS: APIXABAN 5 MG TABLET. PO SCH (20:51)
[2021-01-07] MEDS: DOXYCYCLINE HYCLATE 100 MG TABLET PO SCH (20:51)
[2021-01-07] MEDS: SENNOSIDES/DOCUSATE 8.6/50MG TABLET. PO SCH ×2 (20:51→20:56)
[2021-01-07] MEDS ORDERED: NON FORMULARY ITEM (Fluticasone/Salmeterol (Advair 250-50 Diskus) 1 EACH) IH SCH (21:00)
[2021-01-07 23:09] VITALS: BP 115/70
[2021-01-08] MEDS: AMPICILLIN/SULBACTAM 3 GM in IV NORMAL SALINE 100ML 100 ML IV SCH ×5 (00:04→23:32)
[2021-01-08 03:24] VITALS: BP_SYST 115; BP_SYST 15; BP_DIAS 72
[2021-01-08 07:00] VITALS: BP 121/73
[2021-01-08] MEDS: BUDESONIDE 0.5 MG/2 ML NEBU. NEB SCH ×2 (07:58→21:21)
[2021-01-08] MEDS: IPRATRPIUM/ALBUTEROL 0.5/2.5MG 3 ML NEBU. NEB SCH ×4 (07:59→21:21)
--- NOTE | 2021-01-08 08:32 | PDOC ---
PULMONARY PROGRESS NOTES DATE: 01/08/21 TIME: 08:32 Vitals Vital Signs Date Time Temp Pulse Resp B/P (MAP) Pulse Ox O2 Delivery O2 Flow Rate FiO2 01/08/21 03:24 97.9 80 18 115/72 (86) 95 Nasal Cannula 3.0 97.9 General: Alert, Oriented X4 Lungs: Other Cardiovascular: S1, S2 Abdomen: Soft, Non-tender Extremities: No Edema Labs Laboratory Tests Test 01/07/21 13:25 01/07/21 14:10 01/07/21 15:25 01/07/21 18:45 White Blood Count 11.7 x10^3/uL (4.0-11.0) Red Blood Count 4.35 x10^6/uL (4.30-5.70) Hemoglobin 13.0 g/dL (13.0-17.5) Hematocrit 37.8 % (39.0-53.0) Mean Corpuscular Volume 87 fL (79-100) Mean Corpuscular Hemoglobin 30 pg (25-35) Mean Corpuscular Hemoglobin Concent 34 g/dL (31-37) Red Cell Distribution Width 14.8 % (11.5-14.5) Platelet Count 261 x10^3/uL (140-400) Neutrophils (%) (Auto) 85 % (31-73) Lymphocytes (%) (Auto) 3 % (24-48) Monocytes (%) (Auto) 11 % (0-9) Eosinophils (%) (Auto) 0 % (0-3) Basophils (%) (Auto) 0 % (0-3) Neutrophils # (Auto) 9.9 x10^3/uL (1.8-7.7) Lymphocytes # (Auto) 0.4 x10^3/uL (1.0-4.8) Monocytes # (Auto) 1.3 x10^3/uL (0.0-1.1) Eosinophils # (Auto) 0.0 x10^3/uL (0.0-0.7) Basophils # (Auto) 0.0 x10^3/uL (0.0-0.2) Segmented Neutrophils % 77 % (35-66) Band Neutrophils % 8 % (0-9) Lymphocytes % 2 % (24-48) Monocytes % 11 % (0-10) Promyelocytes % 2 % (0-0) Platelet Estimate Adequate (ADEQUATE) Prothrombin Time 16.5 SEC (11.7-14.0) Prothromb Time International Ratio 1.3 (0.8-1.1) Activated Partial Thromboplast Time 39 SEC (24-38) D-Dimer (Susan) 1.05 ug/mlFEU (0.00-0.50) Sodium Level 136 mmol/L (136-145) Potassium Level 3.1 mmol/L (3.5-5.1) Chloride Level 95 mmol/L (98-107) Carbon Dioxide Level 33 mmol/L (21-32) Anion Gap 8 (6-14) Blood Urea Nitrogen 8 mg/dL (8-26) Creatinine 0.9 mg/dL (0.7-1.3) Estimated GFR (Cockcroft-Gault) 82.3 BUN/Creatinine Ratio 9 (6-20) Glucose Level 129 mg/dL (70-99) Lactic Acid Level 1.2 mmol/L (0.4-2.0) Calcium Level 8.2 mg/dL (8.5-10.1) Magnesium Level 1.8 mg/dL (1.8-2.4) Total Bilirubin 0.6 mg/dL (0.2-1.0) Aspartate Amino Transf (AST/SGOT) 19 U/L (15-37) Alanine Aminotransferase (ALT/SGPT) 26 U/L (16-63) Alkaline Phosphatase 71 U/L (46-116) Creatine Kinase 77 U/L (39-308) Creatine Kinase MB (Mass) 0.5 ng/mL (0.0-3.6) Creatine Kinase MB Relative Index 0.6 % (0-4) Troponin I High Sensitivity 12 ng/L (4-75) IH-Kys-Z-Type Natriuretic Peptide 410 pg/mL (0-449) Total Protein 7.0 g/dL (6.4-8.2) Albumin 2.7 g/dL (3.4-5.0) Albumin/Globulin Ratio 0.6 (1.0-1.7) O2 Saturation 94 % (92-99) Arterial Blood pH 7.50 (7.35-7.45) Arterial Blood pCO2 at Patient Temp 39 mmHg (35-46) Arterial Blood pO2 at Patient Temp 67 mmHg (65-108) Arterial Blood HCO3 30 mmol/L (21-28) Arterial Blood Base Excess 7 mmol/L (-3-3) FiO2 32 SARS-CoV-2 RNA (KEVAN) Negative (Negative) SARS-CoV-2 Antigen (Rapid) Negative (NEGATIVE) Influenza Type A Antigen Negative (NEGATIVE) Influenza Type B Antigen Negative (NEGATIVE) Test 01/07/21 20:10 Urine Collection Type Unknown Urine Color Yellow Urine Clarity Clear Urine pH 7.5 (<5.0-8.0) Urine Specific [place] >=1.030 (1.000-1.030) Urine Protein Negative mg/dL (NEG-TRACE) Urine Glucose (UA) Negative mg/dL (NEG) Urine Ketones (Stick) 15 mg/dL (NEG) Urine Blood Large (NEG) Urine Nitrite Negative (NEG) Urine Bilirubin Negative (NEG) Urine Urobilinogen Dipstick 1.0 mg/dL (0.2 mg/dL) Urine Leukocyte Esterase Negative (NEG) Urine RBC >40 /HPF (0-2) Urine WBC 1-4 /HPF (0-4) Urine Bacteria 0 /HPF (0-FEW) Urine Mucus Slight /LPF Laboratory Tests Test 01/07/21 13:25 01/07/21 14:10 01/07/21 15:25 01/07/21 18:45 White Blood Count 11.7 x10^3/uL (4.0-11.0) Red Blood Count 4.35 x10^6/uL (4.30-5.70) Hemoglobin 13.0 g/dL (13.0-17.5) Hematocrit 37.8 % (39.0-53.0) Mean Corpuscular Volume 87 fL (79-100) Mean Corpuscular Hemoglobin 30 pg (25-35) Mean Corpuscular Hemoglobin Concent 34 g/dL (31-37) Red Cell Distribution Width 14.8 % (11.5-14.5) Platelet Count 261 x10^3/uL (140-400) Neutrophils (%) (Auto) 85 % (31-73) Lymphocytes (%) (Auto) 3 % (24-48) Monocytes (%) (Auto) 11 % (0-9) Eosinophils (%) (Auto) 0 % (0-3) Basophils (%) (Auto) 0 % (0-3) Neutrophils # (Auto) 9.9 x10^3/uL (1.8-7.7) Lymphocytes # (Auto) 0.4 x10^3/uL (1.0-4.8) Monocytes # (Auto) 1.3 x10^3/uL (0.0-1.1) Eosinophils # (Auto) 0.0 x10^3/uL (0.0-0.7) Basophils # (Auto) 0.0 x10^3/uL (0.0-0.2) Segmented Neutrophils % 77 % (35-66) Band Neutrophils % 8 % (0-9) Lymphocytes % 2 % (24-48) Monocytes % 11 % (0-10) Promyelocytes % 2 % (0-0) Platelet Estimate Adequate (ADEQUATE) Prothrombin Time 16.5 SEC (11.7-14.0) Prothromb Time International Ratio 1.3 (0.8-1.1) Activated Partial Thromboplast Time 39 SEC (24-38) D-Dimer (Susan) 1.05 ug/mlFEU (0.00-0.50) Sodium Level 136 mmol/L (136-145) Potassium Level 3.1 mmol/L (3.5-5.1) Chloride Level 95 mmol/L (98-107) Carbon Dioxide Level 33 mmol/L (21-32) Anion Gap 8 (6-14) Blood Urea Nitrogen 8 mg/dL (8-26) Creatinine 0.9 mg/dL (0.7-1.3) Estimated GFR (Cockcroft-Gault) 82.3 BUN/Creatinine Ratio 9 (6-20) Glucose Level 129 mg/dL (70-99) Lactic Acid Level 1.2 mmol/L (0.4-2.0) Calcium Level 8.2 mg/dL (8.5-10.1) Magnesium Level 1.8 mg/dL (1.8-2.4) Total Bilirubin 0.6 mg/dL (0.2-1.0) Aspartate Amino Transf (AST/SGOT) 19 U/L (15-37) Alanine Aminotransferase (ALT/SGPT) 26 U/L (16-63) Alkaline Phosphatase 71 U/L (46-116) Creatine Kinase 77 U/L (39-308) Creatine Kinase MB (Mass) 0.5 ng/mL (0.0-3.6) Creatine Kinase MB Relative Index 0.6 % (0-4) Troponin I High Sensitivity 12 ng/L (4-75) LP-Thm-E-Type Natriuretic Peptide 410 pg/mL (0-449) Total Protein 7.0 g/dL (6.4-8.2) Albumin 2.7 g/dL (3.4-5.0) Albumin/Globulin Ratio 0.6 (1.0-1.7) O2 Saturation 94 % (92-99) Arterial Blood pH 7.50 (7.35-7.45) Arterial Blood pCO2 at Patient Temp 39 mmHg (35-46) Arterial Blood pO2 at Patient Temp 67 mmHg (65-108) Arterial Blood HCO3 30 mmol/L (21-28) Arterial Blood Base Excess 7 mmol/L (-3-3) FiO2 32 SARS-CoV-2 RNA (KEVAN) Negative (Negative) SARS-CoV-2 Antigen (Rapid) Negative (NEGATIVE) Influenza Type A Antigen Negative (NEGATIVE) Influenza Type B Antigen Negative (NEGATIVE) Test 01/07/21 20:10 Urine Collection Type Unknown Urine Color Yellow Urine Clarity Clear Urine pH 7.5 (<5.0-8.0) Urine Specific [place] >=1.030 (1.000-1.030) Urine Protein Negative mg/dL (NEG-TRACE) Urine Glucose (UA) Negative mg/dL (NEG) Urine Ketones (Stick) 15 mg/dL (NEG) Urine Blood Large (NEG) Urine Nitrite Negative (NEG) Urine Bilirubin Negative (NEG) Urine Urobilinogen Dipstick 1.0 mg/dL (0.2 mg/dL) Urine Leukocyte Esterase Negative (NEG) Urine RBC >40 /HPF (0-2) Urine WBC 1-4 /HPF (0-4) Urine Bacteria 0 /HPF (0-FEW) Urine Mucus Slight /LPF Medications Active Scripts Medications Dose Route/Sig Max Daily Dose Days Date Category Xopenex Hfa (Levalbuterol Tartrate) 15 Gm Hfa.aer.ad 2 Puff IH PRN Q4-6HRS 06/27/15 Rx Aspirin Ec (Aspirin) 81 Mg Tablet.dr 81 Mg PO DAILYWBKFT 06/27/15 Rx Mapap (Acetaminophen) 325 Mg Tablet 650 Mg PO PRN Q4HRS PRN 06/27/15 Rx Eliquis (Apixaban) 5 Mg Tablet 5 Mg PO BID 06/27/15 Rx Diltiazem 24HR Cd (Diltiazem Hcl) 240 Mg Cap.er.24h 240 Mg PO DAILY 06/27/15 Rx Levaquin (Levofloxacin) 500 Mg Tablet 500 Mg PO DAILY06 06/27/15 Rx Advair 250-50 Diskus (Fluticasone/Salmeterol) 1 Each Disk.w.dev 1 Each IH BID 06/07/13 Reported Spiriva (Tiotropium [place]) 18 Mcg Cap.w.dev 18 Mcg IH DAILY 06/07/13 Reported Flomax (Tamsulosin Hcl) 0.4 Mg Cap.er.24h 0.4 Mg PO HS 06/07/13 Reported Impression . Full note dictated Abnormal CT chest compatible with atypical pneumonia We will proceed with a diagnostic bronchoscopy I reviewed the risk benefits and alternatives with patient he consented SY BELTRAN MD Jan 08, 2021 08:32
[2021-01-08] MEDS ORDERED: NON FORMULARY ITEM (Tiotropium Bromide (Spiriva) 18 MCG) IH SCH (09:00)
[2021-01-08] MEDS: SENNOSIDES/DOCUSATE 8.6/50MG TABLET. PO SCH ×2 (09:32→20:15)
[2021-01-08] MEDS: DOXYCYCLINE HYCLATE 100 MG TABLET PO SCH ×2 (09:32→20:27)
[2021-01-08] MEDS: predniSONE 20 MG TABLET PO SCH (09:32)
[2021-01-08] MEDS: ASPIRIN ENTERIC COATED 81 MG TABLET.DR. PO SCH (09:32)
[2021-01-08] MEDS: APIXABAN 5 MG TABLET. PO SCH ×2 (09:32→20:27)
--- NOTE | 2021-01-08 11:07 | NUR ---
SW following. Discussed with RN, pt from home with , 3L (does not use oxygen at home), cardiac diet, COVID-19 negative. Pt on IV abx. Pulmonology following. RN advised no SW needs at this time. SW will continue to follow.
--- NOTE | 2021-01-08 12:15 | PN ---
DATE: 01/08/2021 CHIEF COMPLAINT: Respiratory failure. HISTORY OF PRESENT ILLNESS: The patient is a pleasant 75-year-old male who is being examined in room 582. He has been admitted for the past 2 days with severe respiratory failure. His x-ray appears to have COPD, although he states he has been worked up for this on many occasions over the years. He never smoked. The CAT scan is showing possible sarcoidosis and pneumonia. We are treating the patient with IV steroids and antibiotics. We are awaiting consultation with Dr. Liriano. I reviewed the chart with the patient, reviewed his x-rays as well. Discussed the case with case operator and the nurse. ASSESSMENT AND PLAN: Multifactorial respiratory failure, suspect possible sarcoidosis and pneumonia. The patient has been admitted. We are giving IV steroids, breathing treatments, oxygen, antibiotics. We have consulted Dr. Liriano. Home meds. DVT prophylaxis. Full code. Prognosis guarded. KARLOS DR: Carlos TID: [id number]
[2021-01-08 15:00] VITALS: BP 121/72
[2021-01-08 19:00] VITALS: BP 125/76
[2021-01-08] MEDS: TAMSULOSIN 0.4 MG CAP.ER.24H. PO SCH (20:27)
[2021-01-08] MEDS: LACTOBACILLUS RHAMNOSUS GG 1 CAPSULE. PO SCH (20:27)
[2021-01-08 23:00] VITALS: BP 118/74
--- NOTE | 2021-01-08 23:32 | CONS ---
DATE OF CONSULTATION: 01/08/2021 ATTENDING PHYSICIAN: Oscar Rangel MD REASON FOR CONSULTATION: The patient is seen in pulmonary consultation at the request of Dr. Rangel for abnormal CT chest and increasing shortness of breath. HISTORY OF PRESENT ILLNESS: The patient is a 75-year-old that presented to urgent care center, has been having symptoms of increasing shortness of breath and cough. He was found to have O2 saturations in the low 80s. He was referred to the hospital. Upon arrival to the hospital, the patient underwent CT angiogram. CT angiogram revealed no pulmonary emboli. There was bilateral centrilobular nodule as well as a tree-in-bud formation of infiltrates. He had mild mediastinal and hilar adenopathy. The patient has never smoked. He has been around secondhand smoke. He was also working at [employer] for over 30 years. He does have a hobby of restoring cars. 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 He has had previous pneumonia approximately 4-5 years ago, treated. PAST MEDICAL HISTORY: Otherwise remarkable for previous pneumonia and BPH. PAST SURGICAL HISTORY: Status post appendectomy and cholecystectomy. SOCIAL HISTORY: He has never smoked. ALLERGIES: No known drug allergies. VACCINATION: The patient has been vaccinated against COVID-19. REVIEW OF SYSTEMS: CONSTITUTIONAL: Some fever and night sweats. HEENT: Eyes: No change in visual acuity. PULMONARY: As indicated above. CARDIOVASCULAR: No chest pain, no pressure. GASTROINTESTINAL: No nausea, vomiting, or diarrhea. GENITOURINARY: No dysuria or frequency. MUSCULOSKELETAL: No localized muscle aches or joint pains. SKIN: No new skin rashes. NEUROLOGIC: No headaches, diplopia or blurred vision. CURRENT MEDICATIONS: Current antibiotics include Unasyn and doxycycline. He is also on prednisone. PHYSICAL EXAMINATION: VITAL SIGNS: Since admission, he has been afebrile. He is currently on 3-4 liters of oxygen, saturation greater than 92%. HEENT: Eyes: Sclerae were nonicteric. NECK: Jugular venous distention was not elevated. No lymphadenopathy. CHEST: Full expansion. LUNGS: Crackles and rales throughout both lung schumacher. CARDIOVASCULAR: Regular rate and rhythm with S1, S2, no S3. ABDOMEN: Soft. EXTREMITIES: No clubbing, cyanosis, or edema. LABORATORY DATA: Reviewed. Influenza and COVID-19 serology was negative. Arterial blood gas; pH of 7.50, pCO2 of 39, and pO2 of 67. White count was elevated. Hemoglobin and hematocrit were noted. Electrolytes were deranged. Albumin was low. INR was 1.3. DIAGNOSTIC DATA: Chest x-ray and CT as indicated above. IMPRESSION: 1. Acute hypoxemic respiratory failure, multifactorial. 2. Abnormal x-ray, compatible with atypical pneumonia, rule out nontuberculous mycobacterium, Nocardia. 3. Progressive dyspnea secondary to above. 4. Significant occupational exposure, possibly leading to some of the changes seen on CT/interstitial lung disease. 5. Negative COVID-19 testing. 6. Leucocytosis. 7. Protein malnutrition. PLAN: 1. Reviewed the above findings with the patient, we will proceed with a diagnostic bronchoscopy. I have reviewed the risks, benefits and alternatives. 2. Continue current antibiotics. 3. Hold DVT prophylaxis prior to bronchoscopy. I do appreciate the privilege in sharing the patient's care. HERMANN/RADHA DR: Jefferson TID: [id number]
[2021-01-09 03:00] VITALS: BP 147/72
[2021-01-09] MEDS: AMPICILLIN/SULBACTAM 3 GM in IV NORMAL SALINE 100ML 100 ML IV SCH ×3 (05:36→18:02)
[2021-01-09 07:00] VITALS: BP 127/66
[2021-01-09] MEDS: BUDESONIDE 0.5 MG/2 ML NEBU. NEB SCH ×2 (07:24→20:00)
[2021-01-09] MEDS: IPRATRPIUM/ALBUTEROL 0.5/2.5MG 3 ML NEBU. NEB SCH ×4 (07:24→21:16)
--- NOTE | 2021-01-09 07:41 | PDOC ---
[employer] PROGRESS NOTE Date of Service DOS: DATE: 01/09/21 TIME: 07:38 Chief Complaint Chief Complaint Respiratory failure of undetermined etiology Hypoxia Abnormal imaging Probable atypical pneumonia Probable secondhand tobacco exposure Probable occupational chemical exposures BPH A. fib Anticoagulation Asthma Hypertension Allergic rhinitis History of Present Illness History of Present Illness 01/09/2021 Patient seen and examined He is going for bronchoscopy today Discussed with RN Chart reviewed Vitals/I&O Vitals/I&O: Vital Signs Date Time Temp Pulse Resp B/P (MAP) Pulse Ox O2 Delivery O2 Flow Rate FiO2 01/09/21 07:24 92 Nasal Cannula 3.0 01/09/21 03:00 97.7 90 20 147/72 (97) 97.7 I & O 01/08/21 01/08/21 01/09/21 15:00 23:00 07:00 Intake Total 800 ml 400 ml 1200 ml Output Total 400 ml 1575 ml 1500 ml Balance 400 ml -1175 ml -300 ml Physical Exam General: mild distress Heart: Other (Irregular S1-S2) Lungs: Other (Slight crackles) Abdomen: No tenderness Extremities: No clubbing Skin: No rashes Assessment and Plan Assessmemt and Plan Problems Medical Problems: (1) Acute respiratory failure Status: Acute (2) Hypoxia Status: Acute (3) Person under investigation for COVID-19 Status: Acute (4) Pneumonia Status: Acute Respiratory failure of undetermined etiology Hypoxia Abnormal imaging Probable atypical pneumonia Probable secondhand tobacco exposure Probable occupational chemical exposures BPH A. fib Anticoagulation Asthma Hypertension Allergic rhinitis Hypokalemia Plan Going for bronchoscopy later today Cardiac monitoring Antibiotics (doxy and Zosyn) Steroids Bronchodilators Oxygen per nasal cannula Home meds Trend lab DVT prophylaxis Full code Long-term prognosis guarded Appreciate pulmonary input Comment Review of Relevant I have reviewed the following items sandip (where applicable) has been applied. Medications: Current Medications Medications (Trade) Dose Ordered Sig/Pari Route PRN Reason Start Time Stop Time Status Last Admin Dose Admin Aspirin (Ecotrin) 81 mg DAILYWBKFT PO 01/08/21 08:00 01/08/21 09:32 Diltiazem HCl (Cardizem 24hr Cd) 240 mg DAILY PO 01/08/21 09:00 01/08/21 09:33 Prednisone (Prednisone) 40 mg QAM PO 01/08/21 09:00 01/08/21 09:32 Lactobacillus Rhamnosus (Culturelle) 1 cap BID PO 01/08/21 21:00 01/08/21 20:27 Justifications for Admission Other Justification URIEL PARMAR III DO Jan 09, 2021 07:41
[2021-01-09] MEDS: ASPIRIN ENTERIC COATED 81 MG TABLET.DR. PO SCH (08:00)
[2021-01-09] MEDS: SENNOSIDES/DOCUSATE 8.6/50MG TABLET. PO SCH ×3 (08:14→21:57)
[2021-01-09] MEDS: predniSONE 20 MG TABLET PO SCH (08:14)
[2021-01-09] MEDS: APIXABAN 5 MG TABLET. PO SCH ×2 (08:14→21:56)
[2021-01-09] MEDS: DOXYCYCLINE HYCLATE 100 MG TABLET PO SCH ×2 (08:14→21:57)
[2021-01-09] MEDS: LACTOBACILLUS RHAMNOSUS GG 1 CAPSULE. PO SCH ×2 (08:14→21:56)
[2021-01-09] MEDS ORDERED: LIDOCAINE 4% TOPICAL 50 ML SOLUTION. MM PRN (08:15)
[2021-01-09] MEDS ORDERED: LIDOCAINE 1% Multi-Dose 20 ML VIAL. INJ PRN (08:15)
[2021-01-09] MEDS ORDERED: LIDOCAINE 2% VISCOUS 100 ML BOTTLE. MM PRN (08:15)
[2021-01-09] MEDS ORDERED: EPINEPHrine 1 MG/ML VIAL INJ PRN (08:15)
--- NOTE | 2021-01-09 09:25 | PDOC ---
PULMONARY PROGRESS NOTES DATE: 01/09/21 TIME: 09:25 Subjective patient still severely short of breath cough mostly nonproductive at times productive of discolored sputum Vitals Vital Signs Date Time Temp Pulse Resp B/P (MAP) Pulse Ox O2 Delivery O2 Flow Rate FiO2 01/09/21 07:24 92 Nasal Cannula 3.0 01/09/21 03:00 97.7 90 20 147/72 (97) 97.7 ROS: No Nausea, No Chest Pain, No Abdominal Pain, No Increase Cough General: Alert, Oriented X4 Lungs: Crackles Cardiovascular: S1, S2 Abdomen: Soft, Non-tender Neuro Exam: Alert Extremities: No Edema Skin: Warm Labs Laboratory Tests Test 01/07/21 13:25 01/07/21 14:10 01/07/21 15:25 01/07/21 18:45 White Blood Count 11.7 x10^3/uL (4.0-11.0) Red Blood Count 4.35 x10^6/uL (4.30-5.70) Hemoglobin 13.0 g/dL (13.0-17.5) Hematocrit 37.8 % (39.0-53.0) Mean Corpuscular Volume 87 fL (79-100) Mean Corpuscular Hemoglobin 30 pg (25-35) Mean Corpuscular Hemoglobin Concent 34 g/dL (31-37) Red Cell Distribution Width 14.8 % (11.5-14.5) Platelet Count 261 x10^3/uL (140-400) Neutrophils (%) (Auto) 85 % (31-73) Lymphocytes (%) (Auto) 3 % (24-48) Monocytes (%) (Auto) 11 % (0-9) Eosinophils (%) (Auto) 0 % (0-3) Basophils (%) (Auto) 0 % (0-3) Neutrophils # (Auto) 9.9 x10^3/uL (1.8-7.7) Lymphocytes # (Auto) 0.4 x10^3/uL (1.0-4.8) Monocytes # (Auto) 1.3 x10^3/uL (0.0-1.1) Eosinophils # (Auto) 0.0 x10^3/uL (0.0-0.7) Basophils # (Auto) 0.0 x10^3/uL (0.0-0.2) Segmented Neutrophils % 77 % (35-66) Band Neutrophils % 8 % (0-9) Lymphocytes % 2 % (24-48) Monocytes % 11 % (0-10) Promyelocytes % 2 % (0-0) Platelet Estimate Adequate (ADEQUATE) Prothrombin Time 16.5 SEC (11.7-14.0) Prothromb Time International Ratio 1.3 (0.8-1.1) Activated Partial Thromboplast Time 39 SEC (24-38) D-Dimer (Susan) 1.05 ug/mlFEU (0.00-0.50) Sodium Level 136 mmol/L (136-145) Potassium Level 3.1 mmol/L (3.5-5.1) Chloride Level 95 mmol/L (98-107) Carbon Dioxide Level 33 mmol/L (21-32) Anion Gap 8 (6-14) Blood Urea Nitrogen 8 mg/dL (8-26) Creatinine 0.9 mg/dL (0.7-1.3) Estimated GFR (Cockcroft-Gault) 82.3 BUN/Creatinine Ratio 9 (6-20) Glucose Level 129 mg/dL (70-99) Lactic Acid Level 1.2 mmol/L (0.4-2.0) Calcium Level 8.2 mg/dL (8.5-10.1) Magnesium Level 1.8 mg/dL (1.8-2.4) Total Bilirubin 0.6 mg/dL (0.2-1.0) Aspartate Amino Transf (AST/SGOT) 19 U/L (15-37) Alanine Aminotransferase (ALT/SGPT) 26 U/L (16-63) Alkaline Phosphatase 71 U/L (46-116) Creatine Kinase 77 U/L (39-308) Creatine Kinase MB (Mass) 0.5 ng/mL (0.0-3.6) Creatine Kinase MB Relative Index 0.6 % (0-4) Troponin I High Sensitivity 12 ng/L (4-75) EM-Soi-B-Type Natriuretic Peptide 410 pg/mL (0-449) Total Protein 7.0 g/dL (6.4-8.2) Albumin 2.7 g/dL (3.4-5.0) Albumin/Globulin Ratio 0.6 (1.0-1.7) O2 Saturation 94 % (92-99) Arterial Blood pH 7.50 (7.35-7.45) Arterial Blood pCO2 at Patient Temp 39 mmHg (35-46) Arterial Blood pO2 at Patient Temp 67 mmHg (65-108) Arterial Blood HCO3 30 mmol/L (21-28) Arterial Blood Base Excess 7 mmol/L (-3-3) FiO2 32 SARS-CoV-2 RNA (KEVAN) Negative (Negative) SARS-CoV-2 Antigen (Rapid) Negative (NEGATIVE) Influenza Type A Antigen Negative (NEGATIVE) Influenza Type B Antigen Negative (NEGATIVE) Test 01/07/21 20:10 Urine Collection Type Unknown Urine Color Yellow Urine Clarity Clear Urine pH 7.5 (<5.0-8.0) Urine Specific [place] >=1.030 (1.000-1.030) Urine Protein Negative mg/dL (NEG-TRACE) Urine Glucose (UA) Negative mg/dL (NEG) Urine Ketones (Stick) 15 mg/dL (NEG) Urine Blood Large (NEG) Urine Nitrite Negative (NEG) Urine Bilirubin Negative (NEG) Urine Urobilinogen Dipstick 1.0 mg/dL (0.2 mg/dL) Urine Leukocyte Esterase Negative (NEG) Urine RBC >40 /HPF (0-2) Urine WBC 1-4 /HPF (0-4) Urine Bacteria 0 /HPF (0-FEW) Urine Mucus Slight /LPF Medications Active Scripts Medications Dose Route/Sig Max Daily Dose Days Date Category Xopenex Hfa (Levalbuterol Tartrate) 15 Gm Hfa.aer.ad 2 Puff IH PRN Q4-6HRS 06/27/15 Rx Aspirin Ec (Aspirin) 81 Mg Tablet.dr 81 Mg PO DAILYWBKFT 06/27/15 Rx Mapap (Acetaminophen) 325 Mg Tablet 650 Mg PO PRN Q4HRS PRN 06/27/15 Rx Eliquis (Apixaban) 5 Mg Tablet 5 Mg PO BID 06/27/15 Rx Diltiazem 24HR Cd (Diltiazem Hcl) 240 Mg Cap.er.24h 240 Mg PO DAILY 06/27/15 Rx Levaquin (Levofloxacin) 500 Mg Tablet 500 Mg PO DAILY06 06/27/15 Rx Advair 250-50 Diskus (Fluticasone/Salmeterol) 1 Each Disk.w.dev 1 Each IH BID 06/07/13 Reported Spiriva (Tiotropium [place]) 18 Mcg Cap.w.dev 18 Mcg IH DAILY 06/07/13 Reported Flomax (Tamsulosin Hcl) 0.4 Mg Cap.er.24h 0.4 Mg PO HS 06/07/13 Reported Impression . IMPRESSION: 1. Acute hypoxemic respiratory failure, multifactorial. 2. Abnormal x-ray, compatible with atypical pneumonia, rule out nontuberculous mycobacterium, Nocardia. 3. Progressive dyspnea secondary to above. 4. Significant occupational exposure, possibly leading to some of the changes seen on CT/interstitial lung disease. 5. Negative COVID-19 testing. 6. Leucocytosis. 7. Protein malnutrition. Plan . Updated 01/09 Reviewed risk benefits and alternatives to bronchoscopy patient accepted Has been n.p.o. since midnight Continue empiric antibiotics PLAN: 1. Reviewed the above findings with the patient, we will proceed with a diagnostic bronchoscopy. I have reviewed the risks, benefits and alternatives. 2. Continue current antibiotics. 3. Hold DVT prophylaxis prior to bronchoscopy. I do appreciate the privilege in sharing the patient's care. SY BELTRAN MD Jan 09, 2021 09:25
[2021-01-09] MEDS ORDERED: EPINEPHrine 1 MG/ML VIAL ONE (09:41)
[2021-01-09] MEDS ORDERED: LIDOCAINE 4% TOPICAL 50 ML SOLUTION. ONE (09:42)
[2021-01-09] MEDS ORDERED: LIDOCAINE 2% VISCOUS 100 ML BOTTLE. ONE (09:42)
[2021-01-09] MEDS ORDERED: LIDOCAINE 1% Multi-Dose 20 ML VIAL. ONE (09:42)
[2021-01-09 10:53] VITALS: BP 132/71
[2021-01-09] MEDS: IV RINGERS,LACTATED 1000ML 1,000 ML IV SCH ×2 (10:55→21:00)
[2021-01-09] MEDS ORDERED: PROPOFOL 10 MG/ML (20ML) VIAL. IV ONE (11:23)
--- NOTE | 2021-01-09 13:54 | NUR ---
SW following. Discussed with RN, pt having a bronchoscopy today. Pt on 3L (does not use oxygen at home). COVID-19 negative. SW will continue to follow.
[2021-01-09 15:00] VITALS: BP 135/75
--- NOTE | 2021-01-09 16:01 | PDOC4 ---
Procedure Note Procedure: Bronchoscopy, bronchoalveolar lavage. Indications: Reviewed, reviewed risk benefits alternatives to procedure patient in consented. Patient presenting for abnormal CT chest revealing some nodular infiltrates, tree-in-bud formation undergoing a diagnostic bronchoscopy. Suspect atypical pneumonia such as Pseudomonas, nocardia. Complications: No immediate complications Procedural Details: Patient sedated by anesthesia, vital signs and O2 saturation were maintained within normal limits throughout the procedure. The bronchoscope was passed through the right nares. Vocal cords were identified. The vocal cords were anesthetized with a total of 5 cc of 4% lidocaine. The bronchoscope was passed through the vocal cords into the proximal trachea which was normal. Upon visualizing the distal trachea and the right and left mainstem bronchus there was minimal there was a large amount of mucus I was unable to aspirate the mucus back. 30 bronchoscope had to be withdrawn and cleared with saline. The port was cleared and the bronchoscope was reintroduced. Upon inspecting the right and left segments and subsegments there was lots of mucus plugging. A lavage was performed of both the right and left side. The return was serosanguineous in nature. Conclusions: 1. Normal vocal cords 2. Mucous plugging 3. No endobronchial lesion Plan we will await the BAL results SY BELTRAN MD Jan 09, 2021 16:01
[2021-01-09 19:00] VITALS: BP 128/77
[2021-01-09] MEDS: TAMSULOSIN 0.4 MG CAP.ER.24H. PO SCH (21:57)
[2021-01-09 23:00] VITALS: BP 150/84
[2021-01-10] MEDS: AMPICILLIN/SULBACTAM 3 GM in IV NORMAL SALINE 100ML 100 ML IV SCH ×4 (00:37→18:19)
[2021-01-10 02:59] LABS: BASO % 0 % (0-3); EOS % 0 % (0-3); HEMATOCRIT 37.9 % (39.0-53.0); HEMOGLOBIN 12.7 g/dL (13.0-17.5); LYMPH # 1.4 x10^3/uL (1.0-4.8); LYMPH % 14 % (24-48); MEAN CORPUSCULAR HEMOGLOBIN 30 pg (25-35); MEAN CORPUSCULAR HGB CONC 34 g/dL (31-37); MEAN CORPUSCULAR VOLUME 89 fL (79-100); MONO # 1.2 x10^3/uL (0.0-1.1); MONO % 12 % (0-9); NEUT # 7.2 x10^3/uL (1.8-7.7); NEUT % 74 % (31-73); PLATELET COUNT 349 x10^3/uL (140-400); RED BLOOD COUNT 4.26 x10^6/uL (4.30-5.70); WHITE BLOOD COUNT 9.9 x10^3/uL (4.0-11.0)
[2021-01-10 03:00] VITALS: BP 134/84
[2021-01-10 03:20] LABS: CALCIUM 8.5 mg/dL (8.5-10.1); CREATININE 0.8 mg/dL (0.7-1.3); GFR 94.2
[2021-01-10] MEDS ORDERED: METOPROLOL IV PUSH 5 MG/5 ML VIAL. IVP PRN (06:45)
[2021-01-10 07:00] VITALS: BP 110/73
[2021-01-10] MEDS: IV RINGERS,LACTATED 1000ML 1,000 ML IV SCH ×2 (07:00→17:00)
[2021-01-10] MEDS: IPRATRPIUM/ALBUTEROL 0.5/2.5MG 3 ML NEBU. NEB SCH ×4 (07:10→19:59)
[2021-01-10] MEDS: BUDESONIDE 0.5 MG/2 ML NEBU. NEB SCH ×2 (07:10→19:59)
--- NOTE | 2021-01-10 08:21 | PDOC ---
PULMONARY PROGRESS NOTES DATE: 01/10/21 TIME: 08:20 Subjective Patient feels less short of air, less cough, at times mucus is mixed in with some blood Vitals Vital Signs Date Time Temp Pulse Resp B/P (MAP) Pulse Ox O2 Delivery O2 Flow Rate FiO2 01/10/21 07:12 96 Nasal Cannula 3.5 01/10/21 06:46 165 150/84 01/10/21 03:00 97.7 20 97.7 ROS: No Nausea, No Chest Pain, No Abdominal Pain, No Increase Cough General: Alert, Oriented X4 Lungs: Crackles Cardiovascular: S1, S2 Abdomen: Soft, Non-tender Neuro Exam: Alert Extremities: No Edema Skin: Warm Labs Laboratory Tests Test 01/10/21 02:50 White Blood Count 9.9 x10^3/uL (4.0-11.0) Red Blood Count 4.26 x10^6/uL (4.30-5.70) Hemoglobin 12.7 g/dL (13.0-17.5) Hematocrit 37.9 % (39.0-53.0) Mean Corpuscular Volume 89 fL (79-100) Mean Corpuscular Hemoglobin 30 pg (25-35) Mean Corpuscular Hemoglobin Concent 34 g/dL (31-37) Red Cell Distribution Width 15.0 % (11.5-14.5) Platelet Count 349 x10^3/uL (140-400) Neutrophils (%) (Auto) 74 % (31-73) Lymphocytes (%) (Auto) 14 % (24-48) Monocytes (%) (Auto) 12 % (0-9) Eosinophils (%) (Auto) 0 % (0-3) Basophils (%) (Auto) 0 % (0-3) Neutrophils # (Auto) 7.2 x10^3/uL (1.8-7.7) Lymphocytes # (Auto) 1.4 x10^3/uL (1.0-4.8) Monocytes # (Auto) 1.2 x10^3/uL (0.0-1.1) Eosinophils # (Auto) 0.0 x10^3/uL (0.0-0.7) Basophils # (Auto) 0.0 x10^3/uL (0.0-0.2) Sodium Level 140 mmol/L (136-145) Potassium Level 4.0 mmol/L (3.5-5.1) Chloride Level 101 mmol/L (98-107) Carbon Dioxide Level 34 mmol/L (21-32) Anion Gap 5 (6-14) Blood Urea Nitrogen 10 mg/dL (8-26) Creatinine 0.8 mg/dL (0.7-1.3) Estimated GFR (Cockcroft-Gault) 94.2 Glucose Level 86 mg/dL (70-99) Calcium Level 8.5 mg/dL (8.5-10.1) Laboratory Tests Test 01/10/21 02:50 White Blood Count 9.9 x10^3/uL (4.0-11.0) Red Blood Count 4.26 x10^6/uL (4.30-5.70) Hemoglobin 12.7 g/dL (13.0-17.5) Hematocrit 37.9 % (39.0-53.0) Mean Corpuscular Volume 89 fL (79-100) Mean Corpuscular Hemoglobin 30 pg (25-35) Mean Corpuscular Hemoglobin Concent 34 g/dL (31-37) Red Cell Distribution Width 15.0 % (11.5-14.5) Platelet Count 349 x10^3/uL (140-400) Neutrophils (%) (Auto) 74 % (31-73) Lymphocytes (%) (Auto) 14 % (24-48) Monocytes (%) (Auto) 12 % (0-9) Eosinophils (%) (Auto) 0 % (0-3) Basophils (%) (Auto) 0 % (0-3) Neutrophils # (Auto) 7.2 x10^3/uL (1.8-7.7) Lymphocytes # (Auto) 1.4 x10^3/uL (1.0-4.8) Monocytes # (Auto) 1.2 x10^3/uL (0.0-1.1) Eosinophils # (Auto) 0.0 x10^3/uL (0.0-0.7) Basophils # (Auto) 0.0 x10^3/uL (0.0-0.2) Sodium Level 140 mmol/L (136-145) Potassium Level 4.0 mmol/L (3.5-5.1) Chloride Level 101 mmol/L (98-107) Carbon Dioxide Level 34 mmol/L (21-32) Anion Gap 5 (6-14) Blood Urea Nitrogen 10 mg/dL (8-26) Creatinine 0.8 mg/dL (0.7-1.3) Estimated GFR (Cockcroft-Gault) 94.2 Glucose Level 86 mg/dL (70-99) Calcium Level 8.5 mg/dL (8.5-10.1) Medications Active Scripts Medications Dose Route/Sig Max Daily Dose Days Date Category Xopenex Hfa (Levalbuterol Tartrate) 15 Gm Hfa.aer.ad 2 Puff IH PRN Q4-6HRS 06/27/15 Rx Aspirin Ec (Aspirin) 81 Mg Tablet.dr 81 Mg PO DAILYWBKFT 06/27/15 Rx Mapap (Acetaminophen) 325 Mg Tablet 650 Mg PO PRN Q4HRS PRN 06/27/15 Rx Eliquis (Apixaban) 5 Mg Tablet 5 Mg PO BID 06/27/15 Rx Diltiazem 24HR Cd (Diltiazem Hcl) 240 Mg Cap.er.24h 240 Mg PO DAILY 06/27/15 Rx Levaquin (Levofloxacin) 500 Mg Tablet 500 Mg PO DAILY06 06/27/15 Rx Advair 250-50 Diskus (Fluticasone/Salmeterol) 1 Each Disk.w.dev 1 Each IH BID 06/07/13 Reported Spiriva (Tiotropium [place]) 18 Mcg Cap.w.dev 18 Mcg IH DAILY 06/07/13 Reported Flomax (Tamsulosin Hcl) 0.4 Mg Cap.er.24h 0.4 Mg PO HS 06/07/13 Reported Impression . IMPRESSION: 1. Acute hypoxemic respiratory failure, multifactorial. 2. Abnormal x-ray, compatible with atypical pneumonia, rule out nontuberculous mycobacterium, Nocardia. 3. Progressive dyspnea secondary to above. 4. Significant occupational exposure, possibly leading to some of the changes seen on CT/interstitial lung disease. 5. Negative COVID-19 testing. 6. Leucocytosis. 7. Protein malnutrition. 8. Status post bronchoscopy, 01/09, no endobronchial lesion, mucous plugging. Plan . Updated 01/10 So far cultures negative Continue current antibiotics and steroids Discharge in the a.m. 01/11 Follow-up with me in January updated 01/09 Reviewed risk benefits and alternatives to bronchoscopy patient accepted Has been n.p.o. since midnight Continue empiric antibiotics SY BELTRAN MD Jan 10, 2021 08:21
[2021-01-10] MEDS: SENNOSIDES/DOCUSATE 8.6/50MG TABLET. PO SCH ×2 (09:00→20:26)
[2021-01-10] MEDS: ASPIRIN ENTERIC COATED 81 MG TABLET.DR. PO SCH (09:24)
[2021-01-10] MEDS: LACTOBACILLUS RHAMNOSUS GG 1 CAPSULE. PO SCH ×2 (09:24→20:26)
[2021-01-10] MEDS: predniSONE 20 MG TABLET PO SCH (09:24)
[2021-01-10] MEDS: DOXYCYCLINE HYCLATE 100 MG TABLET PO SCH ×2 (09:25→20:26)
[2021-01-10] MEDS: APIXABAN 5 MG TABLET. PO SCH ×2 (09:25→20:26)
[2021-01-10 11:00] VITALS: BP 120/69
[2021-01-10] MEDS: ANTI-COAG MONITOR BY PHARMACY. MC PRN (12:34)
[2021-01-10 15:00] VITALS: BP 124/55
[2021-01-10 19:00] VITALS: BP 117/74
[2021-01-10] MEDS: TAMSULOSIN 0.4 MG CAP.ER.24H. PO SCH (20:27)
[2021-01-10 23:00] VITALS: BP_SYST 127; BP_SYST 132; BP_DIAS 66; BP_DIAS 70
[2021-01-11] MEDS: AMPICILLIN/SULBACTAM 3 GM in IV NORMAL SALINE 100ML 100 ML IV SCH ×2 (01:01→06:02)
[2021-01-11 03:00] VITALS: BP 125/80
[2021-01-11] MEDS: IV RINGERS,LACTATED 1000ML 1,000 ML IV SCH (03:00)
[2021-01-11 07:00] VITALS: BP 130/86
--- NOTE | 2021-01-11 08:09 | PDOC ---
PULMONARY PROGRESS NOTES DATE: 01/11/21 TIME: 08:09 Subjective Patient feels better, ready to discharge Vitals Vital Signs Date Time Temp Pulse Resp B/P (MAP) Pulse Ox O2 Delivery O2 Flow Rate FiO2 01/11/21 03:00 98.4 98 18 125/80 (95) 96 Nasal Cannula 4.0 98.4 ROS: No Nausea, No Chest Pain, No Abdominal Pain, No Increase Cough General: Alert, Oriented X4 Lungs: Crackles Cardiovascular: S1, S2 Abdomen: Soft, Non-tender Neuro Exam: Alert Extremities: No Edema Skin: Warm Labs Laboratory Tests Test 01/10/21 02:50 White Blood Count 9.9 x10^3/uL (4.0-11.0) Red Blood Count 4.26 x10^6/uL (4.30-5.70) Hemoglobin 12.7 g/dL (13.0-17.5) Hematocrit 37.9 % (39.0-53.0) Mean Corpuscular Volume 89 fL (79-100) Mean Corpuscular Hemoglobin 30 pg (25-35) Mean Corpuscular Hemoglobin Concent 34 g/dL (31-37) Red Cell Distribution Width 15.0 % (11.5-14.5) Platelet Count 349 x10^3/uL (140-400) Neutrophils (%) (Auto) 74 % (31-73) Lymphocytes (%) (Auto) 14 % (24-48) Monocytes (%) (Auto) 12 % (0-9) Eosinophils (%) (Auto) 0 % (0-3) Basophils (%) (Auto) 0 % (0-3) Neutrophils # (Auto) 7.2 x10^3/uL (1.8-7.7) Lymphocytes # (Auto) 1.4 x10^3/uL (1.0-4.8) Monocytes # (Auto) 1.2 x10^3/uL (0.0-1.1) Eosinophils # (Auto) 0.0 x10^3/uL (0.0-0.7) Basophils # (Auto) 0.0 x10^3/uL (0.0-0.2) Sodium Level 140 mmol/L (136-145) Potassium Level 4.0 mmol/L (3.5-5.1) Chloride Level 101 mmol/L (98-107) Carbon Dioxide Level 34 mmol/L (21-32) Anion Gap 5 (6-14) Blood Urea Nitrogen 10 mg/dL (8-26) Creatinine 0.8 mg/dL (0.7-1.3) Estimated GFR (Cockcroft-Gault) 94.2 Glucose Level 86 mg/dL (70-99) Calcium Level 8.5 mg/dL (8.5-10.1) Medications Active Scripts Medications Dose Route/Sig Max Daily Dose Days Date Category Xopenex Hfa (Levalbuterol Tartrate) 15 Gm Hfa.aer.ad 2 Puff IH PRN Q4-6HRS 06/27/15 Rx Aspirin Ec (Aspirin) 81 Mg Tablet.dr 81 Mg PO DAILYWBKFT 06/27/15 Rx Mapap (Acetaminophen) 325 Mg Tablet 650 Mg PO PRN Q4HRS PRN 06/27/15 Rx Eliquis (Apixaban) 5 Mg Tablet 5 Mg PO BID 06/27/15 Rx Diltiazem 24HR Cd (Diltiazem Hcl) 240 Mg Cap.er.24h 240 Mg PO DAILY 06/27/15 Rx Levaquin (Levofloxacin) 500 Mg Tablet 500 Mg PO DAILY06 06/27/15 Rx Advair 250-50 Diskus (Fluticasone/Salmeterol) 1 Each Disk.w.dev 1 Each IH BID 06/07/13 Reported Spiriva (Tiotropium [place]) 18 Mcg Cap.w.dev 18 Mcg IH DAILY 06/07/13 Reported Flomax (Tamsulosin Hcl) 0.4 Mg Cap.er.24h 0.4 Mg PO HS 06/07/13 Reported Impression . IMPRESSION: 1. Acute hypoxemic respiratory failure, multifactorial. 2. Abnormal x-ray, compatible with atypical pneumonia, rule out nontuberculous mycobacterium, Nocardia. 3. Progressive dyspnea secondary to above. 4. Significant occupational exposure, possibly leading to some of the changes seen on CT/interstitial lung disease. 5. Negative COVID-19 testing. 6. Leucocytosis. 7. Protein malnutrition. 8. Status post bronchoscopy, 01/09, no endobronchial lesion, mucous plugging. Plan . Updated 01/11 Discharge home Zithromax 250 mg daily Follow-up with me in the office So far cultures negative SY BELTRAN MD Jan 11, 2021 08:09
[2021-01-11] MEDS: IPRATRPIUM/ALBUTEROL 0.5/2.5MG 3 ML NEBU. NEB SCH ×2 (08:19→11:48)
[2021-01-11] MEDS: BUDESONIDE 0.5 MG/2 ML NEBU. NEB SCH (08:19)
[2021-01-11 08:20] LABS: BASO % 0 % (0-3); EOS % 0 % (0-3); HEMATOCRIT 38.8 % (39.0-53.0); HEMOGLOBIN 12.9 g/dL (13.0-17.5); LYMPH # 1.4 x10^3/uL (1.0-4.8); LYMPH % 19 % (24-48); MEAN CORPUSCULAR HEMOGLOBIN 29 pg (25-35); MEAN CORPUSCULAR HGB CONC 33 g/dL (31-37); MEAN CORPUSCULAR VOLUME 88 fL (79-100); MONO % 13 % (0-9); NEUT % 68 % (31-73); PLATELET COUNT 376 x10^3/uL (140-400); RED BLOOD COUNT 4.41 x10^6/uL (4.30-5.70); RED CELL DISTRIBUTION WIDTH 14.7 % (11.5-14.5); WHITE BLOOD COUNT 7.4 x10^3/uL (4.0-11.0)
[2021-01-11 08:41] LABS: CALCIUM 8.4 mg/dL (8.5-10.1); CREATININE 0.7 mg/dL (0.7-1.3); GFR 109.9; POTASSIUM 3.5 mmol/L (3.5-5.1)
[2021-01-11] MEDS: SENNOSIDES/DOCUSATE 8.6/50MG TABLET. PO SCH (09:57)
[2021-01-11] MEDS: ASPIRIN ENTERIC COATED 81 MG TABLET.DR. PO SCH (09:57)
[2021-01-11] MEDS: predniSONE 20 MG TABLET PO SCH (09:57)
[2021-01-11] MEDS: LACTOBACILLUS RHAMNOSUS GG 1 CAPSULE. PO SCH (09:58)
[2021-01-11] MEDS: APIXABAN 5 MG TABLET. PO SCH (09:58)
[2021-01-11] MEDS: DOXYCYCLINE HYCLATE 100 MG TABLET PO SCH (09:58)
[2021-01-11 11:00] VITALS: BP 138/91
[2021-01-11] MEDS ORDERED: AZIT250T6 PO (11:48)
[2021-01-11] MEDS ORDERED: PRED20TA PO (11:48)
--- NOTE | 2021-01-11 11:49 | SNU/HH DC ---
DISCHARGE WITH HOME HEALTH DISCHARGE INFORMATION: Final Diagnosis: Problems Medical Problems: (1) Acute respiratory failure Status: Acute (2) Hypoxia Status: Acute (3) Person under investigation for COVID-19 Status: Acute (4) Pneumonia Status: Acute Condition on Discharge: Stable CODE STATUS: Code Status: Full HOME HEALTH: Face to Face: I certify this patient is under my care and that I, or a nurse practitioner or physician's assistant service manager working with me, had a face to face encounter that meets the physician face to face encounter requirements with this patient on []. Medical Complications: Other (Chronic respiratory disease) Mcfp For: Assess & Educate Safety RN For Eval/Treatment: Yes Physical Therapy For: Evalulation/Treatment Occupational Therapy For: Evaluation/Treatment Home Health Aide For: Self-care BUSINESS INTELLIGENCE CONSULTANT For: Community Resources Pt Meets Homebound Status: Fatigue w/ amb. POST DISCHARGE ORDERS: Activity Instructions for Disc: Activity as tolerated, Other, see below Weight Bearing Status after Di: No restrictions DIET AFTER DISCHARGE: Cardiac Wound/Incision Care: No wound care needed CHECKS AFTER DISCHARGE: Checks after discharge: Check blood press - daily CERTIFICATION STATEMENT: Certification Statement: Certification Statement: Based on the above finding, I certify that this patient is confined to the home and needs intermittent residential care, physical therapy and/or speech therapy, or continues to need occupational therapy.~ This patient is under my care, and I have initiated the establishment of the plan of care.~ This patient will be followed by myself or a community physician who will periodically review the plan of care. Home Meds Active Scripts Azithromycin (AZITHROMYCIN TABLET) 250 Mg Tablet, 250 MG PO DAILY for ANTI- BIOTIC for 90 Days, #90 TAB 0 Refills Prov:CASTLE,NIAL K III DO 01/11/21 Prednisone (PREDNISONE) 20 Mg Tablet, 40 MG PO QAM for . for 90 Days, #90 TAB Prov:CASTLE,NIAL K III DO 01/11/21 Levalbuterol Tartrate (XOPENEX HFA) 15 Gm Hfa.aer.ad, 2 PUFF IH PRN Q4-6HRS, #1 INHALER Prov:ALBERTINA SIEGEL MD 06/27/15 Aspirin (ASPIRIN EC) 81 Mg Tablet.dr, 81 MG PO DAILYWBKFT, #1 TAB Prov:ALBERTINA SIEGEL MD 06/27/15 Acetaminophen (MAPAP) 325 Mg Tablet, 650 MG PO PRN Q4HRS PRN for MILD PAIN / TEMP, #1 TAB Prov:ALBERTINA SIEGEL MD 06/27/15 Apixaban (ELIQUIS) 5 Mg Tablet, 5 MG PO BID, #60 TAB 1 Refill Prov:ALBERTINA SIEGEL MD 06/27/15 Diltiazem Hcl (DILTIAZEM 24HR CD) 240 Mg Cap.er.24h, 240 MG PO DAILY, #30 CAP 1 Refill Prov:ALBERTINA SIEGEL MD 06/27/15 Levofloxacin (LEVAQUIN) 500 Mg Tablet, 500 MG PO DAILY06, #7 TAB 0 Refills Prov:ALBERTINA SIEGEL MD 06/27/15 Reported Medications Fluticasone/Salmeterol (ADVAIR 250-50 DISKUS) 1 Each Disk.w.dev, 1 EACH IH BID for COPD 06/07/13 Tiotropium [place] (SPIRIVA) 18 Mcg Cap.w.dev, 18 MCG IH DAILY for COPD 06/07/13 Tamsulosin Hcl (FLOMAX) 0.4 Mg Cap.er.24h, 0.4 MG PO HS for prstate medication 06/07/13 URIEL PARMAR III DO Jan 11, 2021 11:49
--- NOTE | 2021-01-11 12:08 | NUR ---
SW following. Discussed with RN, discharge order for home with self care. Awaiting 6 minute walk to determine oxygen needs at discharge. SW will continue to follow. Addendum: 01/11/21 at 1543 by WILNER SUTTON SW Pt completed 6 minute walk. Oxygen and Neb arranged through [facility] due to SW having both these items in SW office. Family agreeable. [facility] Equipment provided to [facility]. No further SW needs.
[2021-01-11] MEDS: ANTI-COAG MONITOR BY PHARMACY. MC PRN (12:16)
--- NOTE | 2021-01-11 12:52 | DS ---
DATE OF DISCHARGE: 01/11/2021 ADMISSION DIAGNOSIS: Respiratory failure. 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 CONSULTS: Pulmonary Medicine. PROCEDURES: Bronchoscopy. HOSPITAL COURSE: The patient is a pleasant elderly male, presented with acute on chronic respiratory failure. He has got a history of secondhand tobacco exposure and possible occupational chemical exposures. He has had a 15-year course of various antibiotics and steroids and various treatments, and he has seen numerous doctors trying to figure out why his lungs are not functioning as well. Once again, we placed him on steroids, gave him antibiotics. Dr. Liriano was consulted. He took him for a bronchoscopy. Over the past few days, the patient is doing better. This morning, I saw and examined him. He wants to go home. We planned to discharge. Dr. Liriano would like to give him azithromycin 250 mg a day for a couple of months and see if this seems to help. I am also going to send him on some more steroids. DISPOSITION: Home. ACTIVITY: As tolerated. DIET: Low sodium. MEDICATIONS: 1. Azithromycin 250 p.o. every day for 90 days. 2. Prednisone 40 a day. 3. DuoNebs. 4. Eliquis 5 b.i.d. 5. Aspirin 81 a day. 6. P.r.n. Tylenol. 7. Cardizem CD 240 a day. 8. Advair 250/50 one b.i.d. 9. Xopenex. 10. Flomax 0.4 a day. 11. Spiriva. TOTAL TIME: Thirty four minutes. EST[address]LE DR: Carlos TID: [id number]
--- NOTE | 2021-01-11 15:38 | NUR ---
patient discharged home w/ nebulizer, O2 tank, and instructions for use. IV removed intact. patient stable upon DC. daughter and in room for transport home.
--- NOTE | 2021-01-11 18:12 | PATHOLOGY ---
Note [facility] Accession Number: [id number] TESTS RESULT FLAG UNITS REF RANGE LAB Clinician Provided Cytology Information No. of containers..01 Other (Miscellaneous) Source: BRONCH WASH POOLED DIAGNOSIS: BRONCH WASH POOLED NEGATIVE FOR MALIGNANT CELLS. FEW REACTIVE BRONCHIAL EPITHELIAL CELLS AND PULMONARY MACROPHAGES PRESENT WITHIN A BACKGROUND OF MANY NEUTROPHILS. SILVER METHENAMINE STAINED SMEARS ARE NEGATIVE FOR PNEUMOCYSTIS JIROVECI. NO FUNGAL ORGANISMS ARE PRESENT. Signed out by: Jon Nina MD, Pathologist NPI- [id number] Performed by: Zenaida Hill, Genetics Nurse ([facility]) Gross description: 10ML, FROTHY, RED /LCS 01/10/2021 1820 Local FLAG LEGEND: L-Low Normal,H-High Normal,LL-Alert Low,HH-Alert High <-Panic Low,>-Panic High,A-Abnormal,AA-Critical Abnormal Performed at: [address] [place] [address] Chuy Montana MD, [address] [facility] [address] [place] [address] Jon Nina MD, Specimen Comment: A courtesy copy of this report has been sent to [phone] Specimen Comment: Report sent to Performed at: [address] [place] [address] [address], [place], [place] [id number] MD Chuy Montana MD Phone: [phone]
== END 2021-01-11 15:40 | disposition home or self-care (01) | DRG 177 ==
LOC: ER 12:49 → 5 SOUTH 14:25
PROVIDERS: ADMIT Student in an Organized Health Care Education/Training Program; ATTEND Student in an Organized Health Care Education/Training Program
PROC: 0B938ZZ Drainage of Right Main Bronchus, Via Natural or Artificial Opening Endoscopic (ICD-10-PCS; 2021-01-09)
PROC: 0B978ZZ Drainage of Left Main Bronchus, Via Natural or Artificial Opening Endoscopic (ICD-10-PCS; principal; 2021-01-09 11:30)
DX: J15.6 Pneumonia due to other Gram-negative bacteria (principal); J96.21 Acute and chronic respiratory failure with hypoxia; E46 Unspecified protein-calorie malnutrition; E87.6 Hypokalemia; I10 Essential (primary) hypertension; I48.91 Unspecified atrial fibrillation; J43.9 Emphysema, unspecified; N40.0 Benign prostatic hyperplasia without lower urinary tract symptoms; Z20.822 Contact with and (suspected) exposure to COVID-19; Z87.01 Personal history of pneumonia (recurrent); Z90.49 Acquired absence of other specified parts of digestive tract; Z68.24 Body mass index [BMI] 24.0-24.9, adult
CPT/HCPCS: 31622; 36415; 36600; 71045; 71275; 80048; 80053; 81001; 82550; 82553; 82805; 83605; 83735; 83880; 84484; 85007; 85025; 85379; 85610; 85730; 87040; 87070; 87102; 87116; 87205; 87252; 87426; 87801; 87804; 88112; 88312; 93005; 94618; 94640; 94760; 96361; 96374; 96375; J0295; J0456; J0696; J1100; J2704; J3490; J7030; J7120; J7512; Q9967; U0003; U0005; 99285-25; G0378; J7613; J7626

== ENCOUNTER → 2021-03-18 | Outpatient (CLI) | payer MEDICARE ==
[~2021-03-18] MED LIST changes: +AZIT250T6 PO; +PRED20TA PO
--- NOTE | 2021-03-18 11:54 | RAD ---
EXAM: Chest CT without intravenous contrast. HISTORY: Abnormal chest CT. TECHNIQUE: Computed tomographic images of the chest were obtained without contrast. Multiplanar refor matting was performed. *One or more of the following individualized dose reduction techniques were utilized for this examina tion: 1. Automated exposure control. 2. Adjustment of the mA and/or kV according to patient size. 3. Use of iterative reconstruction technique. COMPARISON: 01/07/2021. FINDINGS: There has been significant interval decrease in previously demonstrated extensive bilateral centrilobular nodules and nodular opacities, favoring a resolving infectious etiology. There has bee n resolution of partial left lower lobe consolidation. There is residual lingular atelectasis or scar ring within the left lower lobe. There are similar-appearing linear atelectasis or scarring within th e medial right lower lobe. There are few tiny residual peripheral predominant nodules and nodular opacities, the largest of whic h measures 4 mm within the lateral left upper lobe. There is a 1.8 cm pleural-based opacity at the ri ght lung apex due to scarring. There are a few tiny nodular opacities along the right minor fissure d ue to lymph nodes. The heart is normal in size. There has been resolution of previously demonstrated mediastinal and hil ar lymphadenopathy. There is calcified atherosclerotic plaque involving the coronary arteries. There is calcification of the aortic valve. The gallbladder is surgically absent. There is no acute finding involving the upper abdomen. There is no acute or suspicious osseous finding. IMPRESSION: 1. Near complete resolution of previously demonstrated extensive bilateral centrilobular nodules and nodular opacities, favoring a resolving infectious etiology. There has also been resolution of partia l left lower lobe consolidation and mediastinal and hilar lymphadenopathy. 2. Minimal residual peripheral predominant nodules and nodular opacities measuring up to 4 mm. Follow -up can be performed in one year. Electronically signed by: Aaliyah Flores MD (03/18/2021 11:52 AM) [id number]
== END ==
LOC: CT 11:04
PROVIDERS: ATTEND Internal Medicine Pulmonary Disease
DX: R91.8 Other nonspecific abnormal finding of lung field (principal); R93.89 Abnormal findings on diagnostic imaging of other specified body structures; I35.8 Other nonrheumatic aortic valve disorders; I70.0 Atherosclerosis of aorta
CPT/HCPCS: 71250